=== PATIENT | male | born 1975 | race African-American/Black ===

== ENCOUNTER 2018-12-24 04:18 | Inpatient (IN) | payer OTHER ==
[~2018-12-24] VITALS: Ht 177.8 cm; Wt 65.3 kg
[2018-12-24] VITALS (10 sets, daily range): BP systolic 93–113; BP diastolic 58–79
[2018-12-24] MEDS ORDERED: MORPHINE SULFATE 4 MG/ML VIAL. IV ONE ×2 (05:00→07:30)
[2018-12-24] MEDS ORDERED: ONDANSETRON PF 4 MG/2 ML VIAL. IV ONE (05:00)
[2018-12-24 05:12] LABS: CALCIUM 9.4 mg/dL (8.5-10.1); CREATININE 1.1 mg/dL (0.7-1.3); GFR 72.7; POTASSIUM 3.5 mmol/L (3.5-5.1)
[2018-12-24 05:14] LABS: BASO # 0.1 x10^3/uL (0.0-0.2); BASO % 0 % (0-3); EOS % 0 % (0-3); HEMATOCRIT 38.8 % (39.0-53.0); HEMOGLOBIN 13.5 g/dL (13.0-17.5); LYMPH # 1.3 x10^3/uL (1.0-4.8); LYMPH % 9 % (24-48); MEAN CORPUSCULAR HEMOGLOBIN 33 pg (25-35); MEAN CORPUSCULAR HGB CONC 35 g/dL (31-37); MEAN CORPUSCULAR VOLUME 94 fL (79-100); MONO # 1.9 x10^3/uL (0.0-1.1); MONO % 13 % (0-9); NEUT % 77 % (31-73); PLATELET COUNT 320 x10^3/uL (140-400); RED BLOOD COUNT 4.12 x10^6/uL (4.30-5.70); RED CELL DISTRIBUTION WIDTH 14.1 % (11.5-14.5); WHITE BLOOD COUNT 14.2 x10^3/uL (4.0-11.0)
[2018-12-24 05:17] LABS: ALBUMIN 3.3 g/dL (3.4-5.0); ALBUMIN/GLOBULIN RATIO 0.6 (1.0-1.7); TOTAL BILIRUBIN 0.6 mg/dL (0.2-1.0); TOTAL PROTEIN 8.7 g/dL (6.4-8.2)
[2018-12-24] MEDS ORDERED: CONTRAST GIVEN. MC PRN (05:45)
[2018-12-24] MEDS ORDERED: IOHEXOL 300 MG/ML 100ML VIAL. IV ONE (05:45)
--- NOTE | 2018-12-24 06:22 | PHYS DOC ---
Past Medical History Past Medical History: No Pertinent History (KIMBERLEE LOPEZ MD) Alcohol Use: Occasionally Drug Use: None (KIMBERLEE LOPEZ MD) Adult General Chief Complaint Chief Complaint: ABDOMINAL PAIN HPI HPI Patient is a 43 year old male who is presenting with chief complaint of rectal pain. He has been there for 3 days feels gassy in the lower abdomen has never had this before no trauma no fever just about a pad every time he tries to have a bowel movement gets really bad. (KIMBERLEE LOPEZ MD) Review of Systems Review of Systems Constitutional: Denies fever or chills [] Eyes: Denies change in visual acuity, redness, or eye pain [] HENT: Denies nasal congestion or sore throat [] Respiratory: Denies cough or shortness of breath [] All other systems were reviewed and found to be within normal limits, except as documented in this note. (KIMBERLEE LOPEZ MD) Current Medications Current Medications Current Medications Medications (Trade) Dose Ordered Sig/Shereen Start Time Stop Time Status Last Admin Dose Admin Info (CONTRAST GIVEN -- Rx MONITORING) 1 each PRN DAILY PRN 12/24/18 05:45 12/26/18 05:44 Iohexol (Omnipaque 300 Mg/ml) 75 ml 1X ONCE 12/24/18 05:45 12/24/18 05:46 DC 12/24/18 05:45 75 ML Morphine Sulfate (Morphine Sulfate) 4 mg PRN Q2HR PRN 12/24/18 07:30 12/24/18 10:00 DC Ondansetron HCl (Zofran) 4 mg 1X ONCE 12/24/18 05:00 12/24/18 05:01 DC 12/24/18 04:54 4 MG Sodium Chloride 1,000 ml @ 150 mls/hr Q6H40M 12/24/18 07:22 12/24/18 14:58 DC 12/24/18 08:46 150 MLS/HR (CARMEN LEOS MD) Allergies Allergies Allergies Coded Allergies Type Severity Reaction Last Updated Verified No Known Drug Allergies 12/24/18 No (CARMEN LEOS MD) Physical Exam Physical Exam Constitutional: Well developed, well nourished, no acute distress, non-toxic appearance. [] HENT: Normocephalic, atraumatic, bilateral external ears normal, oropharynx moist, no oral exudates, nose normal. [] Eyes: PERRLA, EOMI, conjunctiva normal, no discharge. [] Neck: Normal range of motion, no tenderness, supple, no stridor. [] Cardiovascular:Heart rate regular rhythm, no murmur [] Lungs & Thorax: Bilateral breath sounds clear to auscultation [] Abdomen: Bowel sounds normal, soft, no tenderness, no masses, no pulsatile masses. [] Rectal exam there is some fullness and some swelling at approximately 10 to 11:00 it could be a tender external hemorrhoid Skin: Warm, dry, no erythema, no rash. [] Back: No tenderness, no CVA tenderness. [] Extremities: No tenderness, no cyanosis, no clubbing, ROM intact, no edema. [] Neurologic: Alert and oriented X 3, normal motor function, normal sensory function, no focal deficits noted. [] Psychologic: Affect normal, judgement normal, mood normal. [] (KIMBERLEE LOPEZ MD) Current Patient Data Vital Signs Vital Signs Date Time Temp Pulse Resp B/P (MAP) Pulse Ox O2 Delivery O2 Flow Rate FiO2 12/24/18 06:26 16 98 12/24/18 06:23 90 103/58 (73) Room Air 12/24/18 04:33 99.5 99.5 (CARMEN LEOS MD) Lab Values Laboratory Tests Test 12/24/18 04:45 White Blood Count 14.2 x10^3/uL (4.0-11.0) H Red Blood Count 4.12 x10^6/uL (4.30-5.70) L Hemoglobin 13.5 g/dL (13.0-17.5) Hematocrit 38.8 % (39.0-53.0) L Mean Corpuscular Volume 94 fL (79-100) Mean Corpuscular Hemoglobin 33 pg (25-35) Mean Corpuscular Hemoglobin Concent 35 g/dL (31-37) Red Cell Distribution Width 14.1 % (11.5-14.5) Platelet Count 320 x10^3/uL (140-400) Neutrophils (%) (Auto) 77 % (31-73) H Lymphocytes (%) (Auto) 9 % (24-48) L Monocytes (%) (Auto) 13 % (0-9) H Eosinophils (%) (Auto) 0 % (0-3) Basophils (%) (Auto) 0 % (0-3) Neutrophils # (Auto) 11.0 x10^3/uL (1.8-7.7) H Lymphocytes # (Auto) 1.3 x10^3/uL (1.0-4.8) Monocytes # (Auto) 1.9 x10^3/uL (0.0-1.1) H Eosinophils # (Auto) 0.0 x10^3/uL (0.0-0.7) Basophils # (Auto) 0.1 x10^3/uL (0.0-0.2) Segmented Neutrophils % 72 % (35-66) H Band Neutrophils % 6 % (0-9) Lymphocytes % 8 % (24-48) L Monocytes % 14 % (0-10) H Platelet Estimate Adequate (ADEQUATE) Sodium Level 136 mmol/L (136-145) Potassium Level 3.5 mmol/L (3.5-5.1) Chloride Level 97 mmol/L (98-107) L Carbon Dioxide Level 30 mmol/L (21-32) Anion Gap 9 (6-14) Blood Urea Nitrogen 6 mg/dL (8-26) L Creatinine 1.1 mg/dL (0.7-1.3) Estimated GFR (Cockcroft-Gault) 72.7 BUN/Creatinine Ratio 5 (6-20) L Glucose Level 110 mg/dL (70-99) H Calcium Level 9.4 mg/dL (8.5-10.1) Total Bilirubin 0.6 mg/dL (0.2-1.0) Aspartate Amino Transferase (AST) 60 U/L (15-37) H Alanine Aminotransferase (ALT) 48 U/L (16-63) Alkaline Phosphatase 69 U/L (46-116) Total Protein 8.7 g/dL (6.4-8.2) H Albumin 3.3 g/dL (3.4-5.0) L Albumin/Globulin Ratio 0.6 (1.0-1.7) L Laboratory Tests 12/24/18 04:45 Laboratory Tests 12/24/18 04:45 (CARMEN LEOS MD) EKG EKG [] (KIMBERLEE LOPEZ MD) Radiology/Procedures Radiology/Procedures [] (KIMBERLEE LOPEZ MD) Radiology/Procedures [facility] [address] [place] [address] IMAGING REPORT Signed PATIENT: ALAN CASANOVA ACCOUNT: [id number] : 1975 LOCATION: ER AGE: 43 SEX: M EXAM STATUS: PRE ER ORD. PHYSICIAN: KIMBERLEE LOPEZ MD REASON: EVAL FOR PERIRECTAL ABSCESS PROCEDURE: CT ABD PELV W/ IV CONTRST ONLY Study: CT abdomen/pelvis with intravenous contrast Indication: Evaluate for perirectal abscess. Comparison: None. Technique: Helical CT imaging performed of the abdomen and pelvis after the intravenous administration of 75 cc Omnipaque 300 contrast. Sagittal and coronal reformats were obtained. One or more of the following individualized dose reduction techniques were utilized for this examination: 1. Automated exposure control 2. Adjustment of the mA and/or kV according to patient size 3. Use of iterative reconstruction technique. Findings: Prominent perirectal abscess with a horseshoe configuration around the left, right and posterior aspects, image 79 series 2. Collectively, the abscess measures up to 5.7 cm transverse by 5.1 cm AP by 5.4 cm craniocaudal. No air within the abscess. Relatively mild surrounding inflammatory changes with trace lower pelvic fat stranding/fluid. No fluid collection seen elsewhere. The visualized lungs are unremarkable. Trace fatty infiltration along the falciform ligament. The gallbladder, pancreas, spleen and adrenal glands are unremarkable. Symmetric renal enhancement. No hydroureteronephrosis. Impression: Large perirectal abscess forming a horseshoe configuration around the left, right and posterior margins of the rectum collectively measuring up to 5.7 cm transverse by 5.1 cm AP by 5.4 cm craniocaudal. Expected surrounding inflammatory changes. No drainable fluid collection seen elsewhere. Electronically signed by: ALEXYS OBANDO MD (12/24/2018 6:37 AM) [id number] DICTATED and SIGNED BY: ALEXYS OBANDO MD DATE: 12/24/18 0637 (CARMEN LEOS MD) Course & Med Decision Making Course & Med Decision Making Pertinent Labs and Imaging studies reviewed. (See chart for details) []Rectal pain white count of 14 could be diverticulitis could be a perirectal abscess CT scan pending s/o vero (KIMBERLEE LOPEZ MD) Course & Med Decision Making Patient care transferred to tx at 0600. CT of abdomen and pelvis showed large horse shoe like perirectal abscess.Patient requiring admission for further evaluation and treatment. Discussed with Dr. Harris who is in agreement with admission. Discussed findings and plan with patient and family, who acknowledge understanding and agreement. On-call surgeon Dr. Solorzano was consulted at 0720 and did not recommend antibiotic. (CARMEN LEOS MD) Dragon Disclaimer Dragon Disclaimer This electronic medical record was generated, in whole or in part, using a voice recognition dictation system. (KIMBERLEE LOPEZ MD) Departure Departure Impression: Primary Impression: Perirectal abscess Disposition: ADMITTED INPATIENT Admitting Physician: KEN (CARMEN LEOS MD) Condition: IMPROVED Referrals: NON,STAFF (PCP) KIMBERLEE LOPEZ MD Dec 24, 2018 06:22 CARMEN LEOS MD Dec 24, 2018 07:08
--- NOTE | 2018-12-24 06:40 | RAD ---
Study: CT abdomen/pelvis with intravenous contrast Indication: Evaluate for perirectal abscess. Comparison: None. Technique: Helical CT imaging performed of the abdomen and pelvis after the intravenous administration of 75 cc Omnipaque 300 contrast. Sagittal and coronal reformats were obtained. One or more of the following individualized dose reduction techniques were utilized for this examination: 1. Automated exposure control 2. Adjustment of the mA and/or kV according to patient size 3. Use of iterative reconstruction technique. Findings: Prominent perirectal abscess with a horseshoe configuration around the left, right and posterior aspects, image 79 series 2. Collectively, the abscess measures up to 5.7 cm transverse by 5.1 cm AP by 5.4 cm craniocaudal. No air within the abscess. Relatively mild surrounding inflammatory changes with trace lower pelvic fat stranding/fluid. No fluid collection seen elsewhere. The visualized lungs are unremarkable. Trace fatty infiltration along the falciform ligament. The gallbladder, pancreas, spleen and adrenal glands are unremarkable. Symmetric renal enhancement. No hydroureteronephrosis. Impression: Large perirectal abscess forming a horseshoe configuration around the left, right and posterior margins of the rectum collectively measuring up to 5.7 cm transverse by 5.1 cm AP by 5.4 cm craniocaudal. Expected surrounding inflammatory changes. No drainable fluid collection seen elsewhere. Electronically signed by: ALEXYS OBANDO MD (12/24/2018 6:37 AM) [id number]
[2018-12-24] MEDS ORDERED: MORPHINE SULFATE 4 MG/ML VIAL. IV PRN (07:30)
[2018-12-24] MEDS ORDERED: IV NORMAL SALINE 1000ML BAG 1,000 ML IV ONE (07:30)
[2018-12-24 07:44] LABS: % BANDS 6 % (0-9); % LYMPHS 8 % (24-48); % MONOS 14 % (0-10); % SEGS 72 % (35-66); PLT ESTIMATE ADEQUATE (ADEQUATE)
--- NOTE | 2018-12-24 08:10 | PDOC1 ---
History and Physical Date of Admission Date of Admission DATE: 12/24/18 TIME: 08:06 Identification/Chief Complaint Chief Complaint Rectal pain Source Source: Patient History of Present Illness History of Present Illness Mr Narayan is a 43 year old male who is presenting with chief complaint of rectal pain. He has been there for 3 days feels gassy in the lower abdomen has never had this before no trauma no fever just about a pad every time he tries to have a bowel movement gets really bad. WBC 14.2, HR 99. AST elevated. Found with large perirectal abscess on CT, admitted for further pain control and treatment. 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 Past Medical History Cardiovascular: No pertinent hx Pulmonary: No pertinent hx GI: No pertinent hx Heme/Onc: No pertinent hx Hepatobiliary: No pertinent hx Psych: No pertinent hx Rheumatologic: No pertinent hx Infectious disease: No pertinent hx ENT: No pertinent hx Renal/: No pertinent hx Endocrine: No pertinent hx Dermatology: No pertinent hx Past Surgical History Past Surgical History: No pertinent history Family History Family History Reviewed Family History: Family History Unknown Social History Smoke: No ALCOHOL: rare Drugs: None Current Problem List Problem List Problems Medical Problems: (1) Perirectal abscess Status: Acute Current Medications Current Medications Current Medications Morphine Sulfate (Morphine Sulfate) 4 mg 1X ONCE IV Last administered on 12/24/18at 04:54; Start 12/24/18 at 05:00; Stop 12/24/18 at 05:01; Status DC Ondansetron HCl (Zofran) 4 mg 1X ONCE IV Last administered on 12/24/18at 04:54; Start 12/24/18 at 05:00; Stop 12/24/18 at 05:01; Status DC Iohexol (Omnipaque 300 Mg/ml) 75 ml 1X ONCE IV Last administered on 12/24/18at 05:45; Start 12/24/18 at 05:45; Stop 12/24/18 at 05:46; Status DC Info (CONTRAST GIVEN -- Rx MONITORING) 1 each PRN DAILY PRN MC SEE COMMENTS; Start 12/24/18 at 05:45; Stop 12/26/18 at 05:44 Morphine Sulfate (Morphine Sulfate) 4 mg 1X ONCE IV Last administered on 12/24/18at 07:25; Start 12/24/18 at 07:30; Stop 12/24/18 at 07:31; Status DC Sodium Chloride 1,000 ml @ 1,000 mls/hr 1X ONCE IV Last administered on 12/24/18at 07:24; Start 12/24/18 at 07:30; Stop 12/24/18 at 08:29 Morphine Sulfate (Morphine Sulfate) 4 mg PRN Q2HR PRN IV PAIN; Start 12/24/18 at 07:30; Stop 12/24/18 at 10:00 Sodium Chloride 1,000 ml @ 150 mls/hr Q6H40M IV ; Start 12/24/18 at 07:22; Stop 12/25/18 at 07:21 Allergies Allergies: Coded Allergies: No Known Drug Allergies (Unverified , 12/24/18) ROS General: No: Chills, Night Sweats, Fatigue, Malaise, Appetite, Other PSYCHOLOGICAL ROS: No: Anxiety, Behavioral Disorder, Concentration difficultie, Decreased libido, Depression, Disorientation, Hallucinations, Hostility, Irritablity, Memory difficulties, Mood Swings, Obsessive thoughts, Physical abuse, Sexual abuse, Sleep disturbances, Suicidal ideation, Other Eyes: No Blurry vision, No Decreased vision, No Double vision, No Dry eyes, No Excessive tearing, No Eye Pain, No Itchy Eyes, No Loss of vision, No Photophobia, No Scotomata, No Uses contacts, No Uses glasses, No Other HEENT: No: Heacaches, Visual Changes, Hearing change, Nasal congestion, Nasal discharge, Oral lesions, Sinus pain, Sore Throat, Epistaxis, Sneezing, Snoring, Tinnitus, Vertigo, Vocal changes, Other ALLERGY AND IMMUNOLOGY: No: Hives, Insect Bite Sensitivity, Itchy/Watery Eyes, Nasal Congestion, Post Nasal Drip, Seasonal Allergies, Other Hematological and Lymphatic: No: Bleeding Problems, Blood Clots, Blood Transfusions, Brusing, Night Sweats, Pallor, Swollen Lymph Nodes, Other ENDOCRINE: No: Breast Changes, Galactorrhea, Hair Pattern Changes, Hot Flashes, Malaise/lethargy, Mood Swings, Palpitations, Polydipsia/polyuria, Skin Changes, Temperature Intolerance, Unexpected Weight Changes, Other Breast: No New/Changing Breast Lumps, No Nipple changes, No Nipple discharge, No Other Respiratory: No: Cough, Hemoptysis, Orthopnea, Pleuritic Pain, Shortness of breath, SOB with excertion, Sputum Changes, Stridor, Tachypnea, Wheezing, Other Cardiovascular: No Chest Pain, No Palpitations, No Orthopnea, No Paroxysmal Noc. Dyspnea, No Edema, No Lt Headedness, No Other Gastrointestinal: Yes Nausea, Yes Abdominal Pain; No Vomiting, No Diarrhea, No Constipation, No Melena, No Hematochezia, No Other Genitourinary: No Dysuria, No Frequency, No Incontinence, No Hematuria, No Retention, No Discharge, No Urgency, No Pain, No Flank Pain, No Other, No , No , No , No , No , No , No Musculoskeletal: No Gait Disturbance, No Joint Pain, No Joint Stiffness, No Joint Swelling, No Muscle Pain, No Muscular Weakness, No Pain In:, No Swelling In:, No Other Neurological: No Behavorial Changes, No Bowel/Bladder ControlChng, No Confusion, No Dizziness, No Gait Disturbance, No Headaches, No Impaired Coord/balance, No Memory Loss, No Numbness/Tingling, No Seizures, No Speech Problems, No Tremors, No Visual Changes, No Weakness, No Other Skin: No Dry Skin, No Eczema, No Hair Changes, No Lumps, No Mole Changes, No Mottling, No Nail Changes, No Pruritus, No Rash, No Skin Lesion Changes, No Other, No Acne Physical Exam General: Alert, Oriented X3, Cooperative, No acute distress HEENT: Atraumatic, PERRLA, EOMI, Mucous membr. moist/pink Lungs: Clear to auscultation, Normal air movement Heart: S1S2, RRR, no gallops, no murmurs Abdomen: Normal bowel sounds, Soft, No tenderness, No hepatosplenomegaly, No masses Male Genitals Exam: normal genitalia Rectal Exam: other (Pain) Extremities: No clubbing, No cyanosis, No edema, Normal pulses, No tenderness/swelling Skin: No rashes, No breakdown, No significant lesion Neuro: Normal gait, Normal speech, Strength at 5/5 X4 ext, Normal tone, Sensation intact, Cranial nerves 3-12 NL, Reflexes 2+ Psych/Mental Status: Mental status NL, Mood NL Vitals Vitals Vital Signs Date Time Temp Pulse Resp B/P (MAP) Pulse Ox O2 Delivery O2 Flow Rate FiO2 12/24/18 06:26 16 98 12/24/18 06:23 90 103/58 (73) Room Air 12/24/18 04:33 99.5 99.5 Labs Labs Laboratory Tests Test 12/24/18 04:45 White Blood Count 14.2 x10^3/uL (4.0-11.0) Red Blood Count 4.12 x10^6/uL (4.30-5.70) Hemoglobin 13.5 g/dL (13.0-17.5) Hematocrit 38.8 % (39.0-53.0) Mean Corpuscular Volume 94 fL (79-100) Mean Corpuscular Hemoglobin 33 pg (25-35) Mean Corpuscular Hemoglobin Concent 35 g/dL (31-37) Red Cell Distribution Width 14.1 % (11.5-14.5) Platelet Count 320 x10^3/uL (140-400) Neutrophils (%) (Auto) 77 % (31-73) Lymphocytes (%) (Auto) 9 % (24-48) Monocytes (%) (Auto) 13 % (0-9) Eosinophils (%) (Auto) 0 % (0-3) Basophils (%) (Auto) 0 % (0-3) Neutrophils # (Auto) 11.0 x10^3/uL (1.8-7.7) Lymphocytes # (Auto) 1.3 x10^3/uL (1.0-4.8) Monocytes # (Auto) 1.9 x10^3/uL (0.0-1.1) Eosinophils # (Auto) 0.0 x10^3/uL (0.0-0.7) Basophils # (Auto) 0.1 x10^3/uL (0.0-0.2) Segmented Neutrophils % 72 % (35-66) Band Neutrophils % 6 % (0-9) Lymphocytes % 8 % (24-48) Monocytes % 14 % (0-10) Platelet Estimate Adequate (ADEQUATE) Sodium Level 136 mmol/L (136-145) Potassium Level 3.5 mmol/L (3.5-5.1) Chloride Level 97 mmol/L (98-107) Carbon Dioxide Level 30 mmol/L (21-32) Anion Gap 9 (6-14) Blood Urea Nitrogen 6 mg/dL (8-26) Creatinine 1.1 mg/dL (0.7-1.3) Estimated GFR (Cockcroft-Gault) 72.7 BUN/Creatinine Ratio 5 (6-20) Glucose Level 110 mg/dL (70-99) Calcium Level 9.4 mg/dL (8.5-10.1) Total Bilirubin 0.6 mg/dL (0.2-1.0) Aspartate Amino Transf (AST/SGOT) 60 U/L (15-37) Alanine Aminotransferase (ALT/SGPT) 48 U/L (16-63) Alkaline Phosphatase 69 U/L (46-116) Total Protein 8.7 g/dL (6.4-8.2) Albumin 3.3 g/dL (3.4-5.0) Albumin/Globulin Ratio 0.6 (1.0-1.7) Laboratory Tests Test 12/24/18 04:45 White Blood Count 14.2 x10^3/uL (4.0-11.0) Red Blood Count 4.12 x10^6/uL (4.30-5.70) Hemoglobin 13.5 g/dL (13.0-17.5) Hematocrit 38.8 % (39.0-53.0) Mean Corpuscular Volume 94 fL (79-100) Mean Corpuscular Hemoglobin 33 pg (25-35) Mean Corpuscular Hemoglobin Concent 35 g/dL (31-37) Red Cell Distribution Width 14.1 % (11.5-14.5) Platelet Count 320 x10^3/uL (140-400) Neutrophils (%) (Auto) 77 % (31-73) Lymphocytes (%) (Auto) 9 % (24-48) Monocytes (%) (Auto) 13 % (0-9) Eosinophils (%) (Auto) 0 % (0-3) Basophils (%) (Auto) 0 % (0-3) Neutrophils # (Auto) 11.0 x10^3/uL (1.8-7.7) Lymphocytes # (Auto) 1.3 x10^3/uL (1.0-4.8) Monocytes # (Auto) 1.9 x10^3/uL (0.0-1.1) Eosinophils # (Auto) 0.0 x10^3/uL (0.0-0.7) Basophils # (Auto) 0.1 x10^3/uL (0.0-0.2) Segmented Neutrophils % 72 % (35-66) Band Neutrophils % 6 % (0-9) Lymphocytes % 8 % (24-48) Monocytes % 14 % (0-10) Platelet Estimate Adequate (ADEQUATE) Sodium Level 136 mmol/L (136-145) Potassium Level 3.5 mmol/L (3.5-5.1) Chloride Level 97 mmol/L (98-107) Carbon Dioxide Level 30 mmol/L (21-32) Anion Gap 9 (6-14) Blood Urea Nitrogen 6 mg/dL (8-26) Creatinine 1.1 mg/dL (0.7-1.3) Estimated GFR (Cockcroft-Gault) 72.7 BUN/Creatinine Ratio 5 (6-20) Glucose Level 110 mg/dL (70-99) Calcium Level 9.4 mg/dL (8.5-10.1) Total Bilirubin 0.6 mg/dL (0.2-1.0) Aspartate Amino Transf (AST/SGOT) 60 U/L (15-37) Alanine Aminotransferase (ALT/SGPT) 48 U/L (16-63) Alkaline Phosphatase 69 U/L (46-116) Total Protein 8.7 g/dL (6.4-8.2) Albumin 3.3 g/dL (3.4-5.0) Albumin/Globulin Ratio 0.6 (1.0-1.7) Images Images CT abdomen/pelvis with intravenous contrast - Prominent perirectal abscess with a horseshoe configuration around the left, right and posterior aspects, image 79 series 2. Collectively, the abscess measures up to 5.7 cm transverse by 5.1 cm AP by 5.4 cm craniocaudal. No air within the abscess. Relatively mild surrounding inflammatory changes with trace lower pelvic fat stranding/fluid. No fluid collection seen elsewhere. The visualized lungs are unremarkable. Trace fatty infiltration along the falciform ligament. The gallbladder, pancreas, spleen and adrenal glands are unremarkable. Symmetric renal enhancement. No hydroureteronephrosis. Large perirectal abscess forming a horseshoe configuration around the left, right and posterior margins of the rectum collectively measuring up to 5.7 cm transverse by 5.1 cm AP by 5.4 cm craniocaudal. Expected surrounding inflammatory changes. No drainable fluid collection seen elsewhere. VTE Prophylaxis Ordered VTE Prophylaxis Devices: No VTE Pharmacological Prophylaxi: Yes Assessment/Plan Assessment/Plan A/P: Perirectal abscess - started on empiric antibiotics, IVF. General surgery consulted for surgical correction Sepsis - Secondary to abscess, given IVF and empiric antibiotics Transaminitis - uncertain etiology, will trend. FEN - NPO PPX - lovenox post op FULL CODE Dispo - inpatient for surgery, pain control SHERRI MAN MD Dec 24, 2018 08:10
[2018-12-24 08:40] LABS: BILIRUBIN,URINE NEGATIVE (NEG); CLARITY,URINE CLEAR; COLOR,URINE YELLOW; NITRITE,URINE NEGATIVE (NEG); PROTEIN,URINE NEGATIVE (NEG-TRACE)
[2018-12-24] MEDS ORDERED: fentaNYL PF VIAL 100 MCG/2 ML VIAL IVP ONE (08:45)
[2018-12-24] MEDS: IV NORMAL SALINE 1000ML BAG 1,000 ML IV SCH ×2 (08:46→14:02)
[2018-12-24 08:59] LABS: RBC,URINE 0 /HPF (0-2)
[2018-12-24 09:00] LABS: BACTERIA,URINE FEW /HPF (0-FEW); SQUAMOUS EPITHELIAL CELL,UR OCC /LPF
--- NOTE | 2018-12-24 09:30 | NUR ---
Pt arrived via gurney from ED. VSS, C/O pain 12/28 d/t perirectal abscess. Skin is intact. Completed admission assessment. IVF infusing. Pt taken to surgery wound pictures were not taken before he left. Oriented to unit and routines. Call light within reach. Will return to monitor.
[2018-12-24 09:50] LABS: AMPHETAMINE/METHAMPHETAMINE NEG (NEG); BARBITURATES NEG (NEG); BENZODIAZEPINES NEG (NEG); CANNABINOIDS NEG (NEG); COCAINE NEG (NEG); METHADONE NEG (NEG); OPIATES POS (NEG); PHENCYCLIDINE NEG (NEG)
[2018-12-24] MEDS ORDERED: FLU VAX QS 2019-20 (36MOS+)/PF 0.5 ML SYRINGE. VAX IM ONE (10:00)
[2018-12-24] MEDS ORDERED: IV RINGERS,LACTATED 1000ML 1,000 ML IV SCH (10:21)
[2018-12-24] MEDS ORDERED: MORPHINE SULFATE 2 MG/ML VIAL. IV PRN (10:30)
[2018-12-24] MEDS ORDERED: LIDOCAINE 1% PF 2 ML VIAL. ID PRN (10:30)
[2018-12-24] MEDS ORDERED: fentaNYL PF VIAL 100 MCG/2 ML VIAL IV PRN ×2 (10:30)
[2018-12-24] MEDS ORDERED: HYDROmorphone 2 MG/ML VIAL IV PRN ×2 (10:30→12:00)
[2018-12-24] MEDS ORDERED: PROCHLORPERAZINE 10 MG/2 ML VIAL. IV PRN (10:30)
[2018-12-24] MEDS ORDERED: ONDANSETRON PF 4 MG/2 ML VIAL. IV PRN ×2 (10:30→12:00)
[2018-12-24] MEDS ORDERED: fentaNYL PF VIAL 100 MCG/2 ML VIAL ONE (10:34)
[2018-12-24] MEDS ORDERED: DEXAMETHASONE SOD PHOS 4 MG/ML VIAL ONE (10:34)
[2018-12-24] MEDS ORDERED: ONDANSETRON PF 4 MG/2 ML VIAL. ONE (10:34)
[2018-12-24] MEDS ORDERED: PROPOFOL 20 ML IV ONE (10:34)
[2018-12-24] MEDS ORDERED: LIDOCAINE 2% PF 5 ML VIAL. ONE (10:34)
[2018-12-24] MEDS ORDERED: MIDAZOLAM HCL/PF 2 MG/2 ML VIAL. ONE (10:35)
[2018-12-24] MEDS ORDERED: BUPIVACAINE-EPI 0.5%-1:200000 MPF 30 ML VIAL. INJ ONE (11:00)
--- NOTE | 2018-12-24 11:03 | PDOC2 ---
CONSULT Date of Consult Date of Consult DATE: 12/24/18 TIME: 10:57 Reason for Consult Reason for Consult: perirectal abscess Referring Physician Referring Physician: AHSAN Identification/Chief Complaint Chief Complaint rectal pain Source Source: Chart review, Patient History of Present Illness Reason for Visit: Mr Saleem mendoza a 43 yo gentleman with week hx of rectal pain, worse with bowel movements. No similar previous episodes. Got noticeably worse last noc. CT early this AM shows horseshoe abscess Past Medical History Cardiovascular: No pertinent hx Pulmonary: No pertinent hx GI: No pertinent hx Renal/: No pertinent hx Past Surgical History Past Surgical History: No pertinent history Family History Family History: No Significant Current Problem List Problem List Problems Medical Problems: (1) Perirectal abscess Status: Acute Current Medications Current Medications Current Medications Morphine Sulfate (Morphine Sulfate) 4 mg 1X ONCE IV Last administered on 12/24/18at 04:54; Start 12/24/18 at 05:00; Stop 12/24/18 at 05:01; Status DC Ondansetron HCl (Zofran) 4 mg 1X ONCE IV Last administered on 12/24/18at 04:54; Start 12/24/18 at 05:00; Stop 12/24/18 at 05:01; Status DC Iohexol (Omnipaque 300 Mg/ml) 75 ml 1X ONCE IV Last administered on 12/24/18at 05:45; Start 12/24/18 at 05:45; Stop 12/24/18 at 05:46; Status DC Info (CONTRAST GIVEN -- Rx MONITORING) 1 each PRN DAILY PRN MC SEE COMMENTS; Start 12/24/18 at 05:45; Stop 12/26/18 at 05:44 Morphine Sulfate (Morphine Sulfate) 4 mg 1X ONCE IV Last administered on 12/24/18at 07:25; Start 12/24/18 at 07:30; Stop 12/24/18 at 07:31; Status DC Sodium Chloride 1,000 ml @ 1,000 mls/hr 1X ONCE IV Last administered on 12/24/18at 07:24; Start 12/24/18 at 07:30; Stop 12/24/18 at 08:29; Status DC Morphine Sulfate (Morphine Sulfate) 4 mg PRN Q2HR PRN IV PAIN; Start 12/24/18 at 07:30; Stop 12/24/18 at 10:00; Status DC Sodium Chloride 1,000 ml @ 150 mls/hr Q6H40M IV Last administered on 12/24/18at 08:46; Start 12/24/18 at 07:22; Stop 12/25/18 at 07:21 Fentanyl Citrate (Fentanyl 2ml Vial) 50 mcg 1X ONCE IVP Last administered on 12/24/18at 08:46; Start 12/24/18 at 08:45; Stop 12/24/18 at 08:46; Status DC Influenza Virus Vaccine Quadrival (Afluria Quad 2019-20 (3yr Up) Syringe) 0.5 ml ONCE ONCE VAX IM ; Start 12/24/18 at 10:00; Stop 12/24/18 at 10:01; Status DC Metronidazole 100 ml @ 100 mls/hr 1X ONCE IV Last administered on 12/24/18at 10:44; Start 12/24/18 at 10:15; Stop 12/24/18 at 11:14 Ondansetron HCl (Zofran) 4 mg PRN Q6HRS PRN IV NAUSEA/VOMITING; Start 12/24/18 at 10:30; Stop 12/24/18 at 18:00 Fentanyl Citrate (Fentanyl 2ml Vial) 25 mcg PRN Q5MIN PRN IV MILD PAIN 1-3; Start 12/24/18 at 10:30; Stop 12/24/18 at 18:00 Fentanyl Citrate (Fentanyl 2ml Vial) 50 mcg PRN Q5MIN PRN IV MODERATE TO SEVERE PAIN; Start 12/24/18 at 10:30; Stop 12/24/18 at 20:00 Morphine Sulfate (Morphine Sulfate) 1 mg PRN Q10MIN PRN IV SEVERE PAIN 7-10; Start 12/24/18 at 10:30; Stop 12/24/18 at 18:00 Ringer's Solution 1,000 ml @ 30 mls/hr Q24H IV ; Start 12/24/18 at 10:21; Stop 12/24/18 at 22:20 Lidocaine HCl (Xylocaine-Mpf 1% 2ml Vial) 2 ml PRN 1X PRN ID PRIOR TO IV START; Start 12/24/18 at 10:30; Stop 12/24/18 at 18:00 Hydromorphone HCl (Dilaudid) 0.5 mg PRN Q10MIN PRN IV SEV PAIN, Second choice; Start 12/24/18 at 10:30; Stop 12/24/18 at 18:00 Prochlorperazine Edisylate (Compazine) 5 mg PACU PRN PRN IV NAUSEA, MRX1; Start 12/24/18 at 10:30; Stop 12/24/18 at 18:00 Propofol 20 ml @ As Directed STK-MED ONCE IV ; Start 12/24/18 at 10:34; Stop 12/24/18 at 10:34; Status DC Dexamethasone Sodium Phosphate (Decadron) 4 mg STK-MED ONCE .ROUTE ; Start 12/24/18 at 10:34; Stop 12/24/18 at 10:34; Status DC Lidocaine HCl (Lidocaine Pf 2% Vial) 5 ml STK-MED ONCE .ROUTE ; Start 12/24/18 at 10:34; Stop 12/24/18 at 10:34; Status DC Ondansetron HCl (Zofran) 4 mg STK-MED ONCE .ROUTE ; Start 12/24/18 at 10:34; Stop 12/24/18 at 10:34; Status DC Fentanyl Citrate (Fentanyl 2ml Vial) 100 mcg STK-MED ONCE .ROUTE ; Start 12/24/18 at 10:34; Stop 12/24/18 at 10:35; Status DC Midazolam HCl (Versed) 2 mg STK-MED ONCE .ROUTE ; Start 12/24/18 at 10:35; Stop 12/24/18 at 10:35; Status DC Bupivacaine HCl/ Epinephrine Bitart (Sensorcain-Epi 0.5%-1:175102 Mpf) 30 ml 1X ONCE INJ ; Start 12/24/18 at 11:00; Stop 12/24/18 at 11:01 Allergies Allergies: Coded Allergies: No Known Drug Allergies (Unverified , 12/24/18) ROS Gastrointestinal: Yes Other (pain with defication) Physical Exam General: Alert, Oriented X3, No acute distress HEENT: Atraumatic Lungs: Normal air movement Heart: Regular rate Abdomen: Soft, Other (erythema, induration in perirectal area) Vitals VITALS Vital Signs Date Time Temp Pulse Resp B/P (MAP) Pulse Ox O2 Delivery O2 Flow Rate FiO2 12/24/18 10:44 100.4 98 16 111/70 96 Room Air 100.4 Labs Labs Laboratory Tests Test 12/24/18 04:45 12/24/18 08:25 White Blood Count 14.2 x10^3/uL (4.0-11.0) Red Blood Count 4.12 x10^6/uL (4.30-5.70) Hemoglobin 13.5 g/dL (13.0-17.5) Hematocrit 38.8 % (39.0-53.0) Mean Corpuscular Volume 94 fL (79-100) Mean Corpuscular Hemoglobin 33 pg (25-35) Mean Corpuscular Hemoglobin Concent 35 g/dL (31-37) Red Cell Distribution Width 14.1 % (11.5-14.5) Platelet Count 320 x10^3/uL (140-400) Neutrophils (%) (Auto) 77 % (31-73) Lymphocytes (%) (Auto) 9 % (24-48) Monocytes (%) (Auto) 13 % (0-9) Eosinophils (%) (Auto) 0 % (0-3) Basophils (%) (Auto) 0 % (0-3) Neutrophils # (Auto) 11.0 x10^3/uL (1.8-7.7) Lymphocytes # (Auto) 1.3 x10^3/uL (1.0-4.8) Monocytes # (Auto) 1.9 x10^3/uL (0.0-1.1) Eosinophils # (Auto) 0.0 x10^3/uL (0.0-0.7) Basophils # (Auto) 0.1 x10^3/uL (0.0-0.2) Segmented Neutrophils % 72 % (35-66) Band Neutrophils % 6 % (0-9) Lymphocytes % 8 % (24-48) Monocytes % 14 % (0-10) Platelet Estimate Adequate (ADEQUATE) Sodium Level 136 mmol/L (136-145) Potassium Level 3.5 mmol/L (3.5-5.1) Chloride Level 97 mmol/L (98-107) Carbon Dioxide Level 30 mmol/L (21-32) Anion Gap 9 (6-14) Blood Urea Nitrogen 6 mg/dL (8-26) Creatinine 1.1 mg/dL (0.7-1.3) Estimated GFR (Cockcroft-Gault) 72.7 BUN/Creatinine Ratio 5 (6-20) Glucose Level 110 mg/dL (70-99) Calcium Level 9.4 mg/dL (8.5-10.1) Total Bilirubin 0.6 mg/dL (0.2-1.0) Aspartate Amino Transf (AST/SGOT) 60 U/L (15-37) Alanine Aminotransferase (ALT/SGPT) 48 U/L (16-63) Alkaline Phosphatase 69 U/L (46-116) Total Protein 8.7 g/dL (6.4-8.2) Albumin 3.3 g/dL (3.4-5.0) Albumin/Globulin Ratio 0.6 (1.0-1.7) Urine Collection Type Void Urine Color Yellow Urine Clarity Clear Urine pH 6.0 Urine Specific [place] >=1.030 Urine Protein Negative mg/dL (NEG-TRACE) Urine Glucose (UA) Negative mg/dL (NEG) Urine Ketones (Stick) Negative mg/dL (NEG) Urine Blood Negative (NEG) Urine Nitrite Negative (NEG) Urine Bilirubin Negative (NEG) Urine Urobilinogen Dipstick 1.0 mg/dL (0.2 mg/dL) Urine Leukocyte Esterase Negative (NEG) Urine RBC 0 /HPF (0-2) Urine WBC 1-4 /HPF (0-4) Urine Squamous Epithelial Cells Occ /LPF Urine Bacteria Few /HPF (0-FEW) Urine Mucus Mod /LPF Urine Opiates Screen Pos (NEG) Urine Methadone Screen Neg (NEG) Urine Barbiturates Neg (NEG) Urine Phencyclidine Screen Neg (NEG) Urine Amphetamine/Methamphetamine Neg (NEG) Urine Benzodiazepines Screen Neg (NEG) Urine Cocaine Screen Neg (NEG) Urine Cannabinoids Screen Neg (NEG) Urine Ethyl Alcohol Neg (NEG) Laboratory Tests Test 12/24/18 04:45 12/24/18 08:25 White Blood Count 14.2 x10^3/uL (4.0-11.0) Red Blood Count 4.12 x10^6/uL (4.30-5.70) Hemoglobin 13.5 g/dL (13.0-17.5) Hematocrit 38.8 % (39.0-53.0) Mean Corpuscular Volume 94 fL (79-100) Mean Corpuscular Hemoglobin 33 pg (25-35) Mean Corpuscular Hemoglobin Concent 35 g/dL (31-37) Red Cell Distribution Width 14.1 % (11.5-14.5) Platelet Count 320 x10^3/uL (140-400) Neutrophils (%) (Auto) 77 % (31-73) Lymphocytes (%) (Auto) 9 % (24-48) Monocytes (%) (Auto) 13 % (0-9) Eosinophils (%) (Auto) 0 % (0-3) Basophils (%) (Auto) 0 % (0-3) Neutrophils # (Auto) 11.0 x10^3/uL (1.8-7.7) Lymphocytes # (Auto) 1.3 x10^3/uL (1.0-4.8) Monocytes # (Auto) 1.9 x10^3/uL (0.0-1.1) Eosinophils # (Auto) 0.0 x10^3/uL (0.0-0.7) Basophils # (Auto) 0.1 x10^3/uL (0.0-0.2) Segmented Neutrophils % 72 % (35-66) Band Neutrophils % 6 % (0-9) Lymphocytes % 8 % (24-48) Monocytes % 14 % (0-10) Platelet Estimate Adequate (ADEQUATE) Sodium Level 136 mmol/L (136-145) Potassium Level 3.5 mmol/L (3.5-5.1) Chloride Level 97 mmol/L (98-107) Carbon Dioxide Level 30 mmol/L (21-32) Anion Gap 9 (6-14) Blood Urea Nitrogen 6 mg/dL (8-26) Creatinine 1.1 mg/dL (0.7-1.3) Estimated GFR (Cockcroft-Gault) 72.7 BUN/Creatinine Ratio 5 (6-20) Glucose Level 110 mg/dL (70-99) Calcium Level 9.4 mg/dL (8.5-10.1) Total Bilirubin 0.6 mg/dL (0.2-1.0) Aspartate Amino Transf (AST/SGOT) 60 U/L (15-37) Alanine Aminotransferase (ALT/SGPT) 48 U/L (16-63) Alkaline Phosphatase 69 U/L (46-116) Total Protein 8.7 g/dL (6.4-8.2) Albumin 3.3 g/dL (3.4-5.0) Albumin/Globulin Ratio 0.6 (1.0-1.7) Urine Collection Type Void Urine Color Yellow Urine Clarity Clear Urine pH 6.0 Urine Specific [place] >=1.030 Urine Protein Negative mg/dL (NEG-TRACE) Urine Glucose (UA) Negative mg/dL (NEG) Urine Ketones (Stick) Negative mg/dL (NEG) Urine Blood Negative (NEG) Urine Nitrite Negative (NEG) Urine Bilirubin Negative (NEG) Urine Urobilinogen Dipstick 1.0 mg/dL (0.2 mg/dL) Urine Leukocyte Esterase Negative (NEG) Urine RBC 0 /HPF (0-2) Urine WBC 1-4 /HPF (0-4) Urine Squamous Epithelial Cells Occ /LPF Urine Bacteria Few /HPF (0-FEW) Urine Mucus Mod /LPF Urine Opiates Screen Pos (NEG) Urine Methadone Screen Neg (NEG) Urine Barbiturates Neg (NEG) Urine Phencyclidine Screen Neg (NEG) Urine Amphetamine/Methamphetamine Neg (NEG) Urine Benzodiazepines Screen Neg (NEG) Urine Cocaine Screen Neg (NEG) Urine Cannabinoids Screen Neg (NEG) Urine Ethyl Alcohol Neg (NEG) Images Images CT done earlier today is reviewed Assessment/Plan Assessment/Plan horseshoe perirectal abscess to OR for I and D explained risks including but not limited to bleeding, continued infection, open wounds requiring wound care, possible need for more surgery, pain, poor sphincter control he will proceed Thanks for consult BUFFY DUENAS MD Dec 24, 2018 11:03
[2018-12-24] MEDS ORDERED: SURGICEL HEMOSTAT 4X8 EACH. ONE (11:28)
[2018-12-24] MEDS ORDERED: KETOROLAC 30 MG/ML VIAL. ONE (11:28)
[2018-12-24] MEDS ORDERED: SEVOFLURANE 31 TO 60 MINUTES. IH ONE (11:47)
[2018-12-24] MEDS ORDERED: IPRATRPIUM/ALBUTEROL 0.5/2.5MG 3 ML NEBU. ONE (11:51)
[2018-12-24] MEDS ORDERED: IV NORMAL SALINE 1000ML BAG 1,000 ML IV SCH (11:59)
[2018-12-24] MEDS ORDERED: IPRATRPIUM/ALBUTEROL 0.5/2.5MG 3 ML NEBU. NEB ONE (12:00)
[2018-12-24] MEDS ORDERED: oxyCODONE/APAP 5/325 1 TAB TABLET PO PRN (12:00)
[2018-12-24] MEDS ORDERED: 0.9 % SODIUM CHLORIDE 10 ML DISP.SYRIN. IV PRN (12:00)
[2018-12-24] MEDS ORDERED: NALOXONE 0.4 MG/ML VIAL. IV PRN (12:00)
--- NOTE | 2018-12-24 12:07 | PDOC ---
BRIEF OPERATIVE NOTE Date: Dec 24, 2018 Pre-Op Diagnosis belinda-rectal abscess Post-Op Diagnosis same Procedure Performed incision and drainage Surgeon Rashad Anesthesia Type: General Blood Loss 25cc IV Fluid 800cc Specimens Obtained cultures Findings horseshoe abscess Complications none Operative Note Wk # [id number] BUFFY DUENAS MD Dec 24, 2018 12:07
--- NOTE | 2018-12-24 12:12 | OP ---
DATE OF SURGERY: 12/24/2018 PREOPERATIVE DIAGNOSIS: Perirectal abscess. POSTOPERATIVE DIAGNOSIS: Perirectal abscess. PROCEDURE: Incision and drainage. SURGEON: Buffy Duenas MD ANESTHESIA: General LMA. ESTIMATED BLOOD LOSS: 25 mL. INTRAVENOUS FLUIDS: 800 mL. INDICATIONS: The patient is a 43-year-old with rectal pain and a CT showing a horseshoe abscess. He is brought for I and D. DESCRIPTION OF PROCEDURE: The patient brought to the operating suite, given a general LMA, placed in dorsal lithotomy position, and the perianal area was prepped and draped in usual sterile fashion. An area of pointing at 5 o'clock was opened and immediately extruded purulent drainage. Cultures were made. The wound was digitally explored and showed extension superiorly on the left to 2 o'clock and superior lateral on the right to 8 o'clock. After digitally breaking up loculations, the wound was irrigated. [place] drains were placed through the counterincisions at 2 o'clock and 8 o'clock into the initial incision at 5 o'clock and secured with silk stitches. Hemostasis was present. Sterile dressing applied. The patient taken out of lithotomy, awakened from his anesthetic, and taken to the recovery room in satisfactory condition. BUFFY DUENAS MD DR: MEGAN/juan josé JOB#: [id number] / [id number]
--- NOTE | 2018-12-24 12:30 | NUR ---
Pt return from surgery. Denies pain, VSS on 4L, IVF infusing. Dressing checked small amount of drainage. Water pitcher filled and meal tray offered. Call light within reach. Will continue to monitor.
[2018-12-24] MEDS: ENOXAPARIN 40 MG/0.4 ML SYRINGE. SQ SCH (13:00)
--- NOTE | 2018-12-24 14:39 | PDOC ---
Infectious Disease Note Vital Sign Vital Signs Vital Signs Date Time Temp Pulse Resp B/P (MAP) Pulse Ox O2 Delivery O2 Flow Rate FiO2 12/24/18 12:45 99.0 103 20 105/73 (84) 95 Room Air 99.0 12/24/18 12:28 4 Labs Lab Laboratory Tests Test 12/24/18 04:45 12/24/18 08:25 White Blood Count 14.2 x10^3/uL (4.0-11.0) Red Blood Count 4.12 x10^6/uL (4.30-5.70) Hemoglobin 13.5 g/dL (13.0-17.5) Hematocrit 38.8 % (39.0-53.0) Mean Corpuscular Volume 94 fL (79-100) Mean Corpuscular Hemoglobin 33 pg (25-35) Mean Corpuscular Hemoglobin Concent 35 g/dL (31-37) Red Cell Distribution Width 14.1 % (11.5-14.5) Platelet Count 320 x10^3/uL (140-400) Neutrophils (%) (Auto) 77 % (31-73) Lymphocytes (%) (Auto) 9 % (24-48) Monocytes (%) (Auto) 13 % (0-9) Eosinophils (%) (Auto) 0 % (0-3) Basophils (%) (Auto) 0 % (0-3) Neutrophils # (Auto) 11.0 x10^3/uL (1.8-7.7) Lymphocytes # (Auto) 1.3 x10^3/uL (1.0-4.8) Monocytes # (Auto) 1.9 x10^3/uL (0.0-1.1) Eosinophils # (Auto) 0.0 x10^3/uL (0.0-0.7) Basophils # (Auto) 0.1 x10^3/uL (0.0-0.2) Segmented Neutrophils % 72 % (35-66) Band Neutrophils % 6 % (0-9) Lymphocytes % 8 % (24-48) Monocytes % 14 % (0-10) Platelet Estimate Adequate (ADEQUATE) Sodium Level 136 mmol/L (136-145) Potassium Level 3.5 mmol/L (3.5-5.1) Chloride Level 97 mmol/L (98-107) Carbon Dioxide Level 30 mmol/L (21-32) Anion Gap 9 (6-14) Blood Urea Nitrogen 6 mg/dL (8-26) Creatinine 1.1 mg/dL (0.7-1.3) Estimated GFR (Cockcroft-Gault) 72.7 BUN/Creatinine Ratio 5 (6-20) Glucose Level 110 mg/dL (70-99) Calcium Level 9.4 mg/dL (8.5-10.1) Total Bilirubin 0.6 mg/dL (0.2-1.0) Aspartate Amino Transf (AST/SGOT) 60 U/L (15-37) Alanine Aminotransferase (ALT/SGPT) 48 U/L (16-63) Alkaline Phosphatase 69 U/L (46-116) Total Protein 8.7 g/dL (6.4-8.2) Albumin 3.3 g/dL (3.4-5.0) Albumin/Globulin Ratio 0.6 (1.0-1.7) Urine Collection Type Void Urine Color Yellow Urine Clarity Clear Urine pH 6.0 Urine Specific [place] >=1.030 Urine Protein Negative mg/dL (NEG-TRACE) Urine Glucose (UA) Negative mg/dL (NEG) Urine Ketones (Stick) Negative mg/dL (NEG) Urine Blood Negative (NEG) Urine Nitrite Negative (NEG) Urine Bilirubin Negative (NEG) Urine Urobilinogen Dipstick 1.0 mg/dL (0.2 mg/dL) Urine Leukocyte Esterase Negative (NEG) Urine RBC 0 /HPF (0-2) Urine WBC 1-4 /HPF (0-4) Urine Squamous Epithelial Cells Occ /LPF Urine Bacteria Few /HPF (0-FEW) Urine Mucus Mod /LPF Urine Opiates Screen Pos (NEG) Urine Methadone Screen Neg (NEG) Urine Barbiturates Neg (NEG) Urine Phencyclidine Screen Neg (NEG) Urine Amphetamine/Methamphetamine Neg (NEG) Urine Benzodiazepines Screen Neg (NEG) Urine Cocaine Screen Neg (NEG) Urine Cannabinoids Screen Neg (NEG) Urine Ethyl Alcohol Neg (NEG) Objective Assessment Large belinda-rectal abscess s/p I and D, 12/24 Leukocytosis Fever Plan Plan of Care Begin Zosyn per Dr. Bowden s/p steroids CBC in am f/u cultures Pain management per primary D/w nursing Thank you [id number] Fevers - denies previous infections/wounds/surgeries or any health problems. Attending Co-Sign Attending Co-Sign The patient was seen and interviewed as well as examined at the bedside. The chart was reviewed. The case was discussed. Agree with the plan of care. ESDRAS DE JESUS APRN Dec 24, 2018 14:39 QUENTIN BOWDEN MD Dec 24, 2018 14:58
--- NOTE | 2018-12-24 14:56 | CONS ---
DATE OF CONSULTATION: 12/24/2018 Pan Ruvalcaba, nurse practitioner dictating for Dr. Quentin Noble, Infectious Disease. REQUESTING PHYSICIAN: Dr. Solorzano. REASON FOR CONSULTATION: Abscess. HISTORY OF PRESENT ILLNESS: The patient is a 43-year-old -[place] Citizen male who presented with 3-day history of worsening rectal pain with bowel movements. An abdominal/pelvis CT scan demonstrated a large perirectal abscess forming a horseshoe configuration around the left, right and posterior margins of the rectum, collectively measuring up to 5.7 cm x 5.1 cm x 5.4 cm with surrounding inflammatory changes. No drainable fluid collections seen elsewhere. He was taken to the OR earlier today for an I and D. He was given a dose of metronidazole and dexamethasone. Purulent drainage was sent for culture and [place] drains were placed. He has since returned to his room. The patient says he is more comfortable, less pain. He denies prior history of abscesses or skin infections. Denies recent antibiotics. Denies fevers, chills or body aches. Denies nausea, vomiting or diarrhea. PAST MEDICAL HISTORY: No significant past medical history. PAST SURGICAL HISTORY: I and D of perirectal abscess, 12/24/2018. FAMILY HISTORY: Noncontributory. SOCIAL HISTORY: The patient is . He is unemployed. Nonsmoker. He does not have any pets. ALLERGIES: No known drug allergies. MEDICATIONS: One-time dose of metronidazole, one-time dose of dexamethasone, fentanyl, flu vaccine, Dilaudid, DuoNeb, Toradol, morphine, Zofran, Percocet. REVIEW OF SYSTEMS: Per HPI, otherwise all other review of systems are negative. PHYSICAL EXAMINATION: VITAL SIGNS: Temperature is 99.0, blood pressure 105/73, heart rate 103, respiratory rate 20, pulse oximetry 95% on room air. GENERAL: The patient is slightly propped up in bed, alert, in no apparent distress. HEENT: Pupils equally round, reactive. Normal conjunctivae. Oropharynx pink and moist. NECK: Supple. LUNGS: Clear to auscultation. HEART: S1, S2. ABDOMEN: Nondistended, soft and nontender with bowel sounds present. EXTREMITIES: No gross edema or cyanosis. SKIN: Warm to touch. No signs of rash. Perirectal postop dressing in place, I did not remove. NEUROLOGIC: Alert and oriented x 3. LABORATORY DATA: Today's WBC 14.2, hemoglobin 13.5, platelets 320,000, segs 72%, bands 6%. Sodium 136, potassium 3.5, creatinine 1.1, BUN 6, total bilirubin 0.6, AST 60, ALT 48, albumin 3.3. Urine toxicology positive for opiates. Urinalysis unremarkable for infection. Wound cultures pending. CT abdomen/pelvis per HPI. IMPRESSION: 1. Large perirectal abscess status post incision and drainage, 12/24/2018. Cultures pending. 2. Leukocytosis. PLAN: Begin Zosyn. Check a CBC in the a.m. Follow up on culture results. Pain management per primary. Discussed with nursing. Thank you, Dr. Solorzano, for asking us to participate in this patient's care. Should you have further questions or concerns, please call. The patient seen and examined and plan of care implemented by Dr. Quentin Noble. QUENTIN NOBLE MD DR: RAY/juan josé JOB#: [id number] / [id number]
[2018-12-24] MEDS: POTASSIUM CL 20MEQ-0.45% NACL 1,000 ML IV SCH ×2 (15:50→22:25)
[2018-12-24] MEDS: PIPERACILLIN/TAZOBACTAM 3.375 GM in IV NORMAL SALINE 50ML 50 ML IV SCH ×3 (15:50→23:42)
--- NOTE | 2018-12-24 18:37 | NUR ---
1800 Zosyn non administered; previous dose was late and administered @ 1600. Lovenox non administered d/t procedure less than 12 hours ago.
[2018-12-24] MEDS ORDERED: POLYETHYLENE GLYCOL 3350 17 GM PACKET. PO SCH (21:00)
[2018-12-24] MEDS ORDERED: PSYLLIUM HUSK (SUGAR FREE) 1 PKT PACKET PO SCH (21:00)
[2018-12-24] MEDS: DOCUSATE SODIUM 100 MG CAPSULE. PO SCH (21:00)
[2018-12-24] MEDS: oxyCODONE/APAP 5/325 1 TAB TABLET PO PRN (23:42)
[2018-12-25 03:00] VITALS: BP 89/62
[2018-12-25 05:50] LABS: HEMATOCRIT 36.7 % (39.0-53.0); HEMOGLOBIN 12.6 g/dL (13.0-17.5); RED BLOOD COUNT 3.81 x10^6/uL (4.30-5.70); RED CELL DISTRIBUTION WIDTH 13.9 % (11.5-14.5); WHITE BLOOD COUNT 15.3 x10^3/uL (4.0-11.0)
[2018-12-25] MEDS: PIPERACILLIN/TAZOBACTAM 3.375 GM in IV NORMAL SALINE 50ML 50 ML IV SCH ×4 (06:10→23:33)
[2018-12-25 07:00] VITALS: BP 89/62
--- NOTE | 2018-12-25 08:37 | PDOC ---
ARISTIDES MARLEY [employer] AND [employer] 12/25/18 0837: SURGICAL PROGRESS NOTE Subjective pain kely with movement resting Vital Signs Vital Signs Date Time Temp Pulse Resp B/P (MAP) Pulse Ox O2 Delivery O2 Flow Rate FiO2 12/25/18 07:00 99.2 93 16 89/62 (71) 90 Room Air 99.2 12/25/18 03:00 2.0 I&O Intake and Output 12/25/18 07:00 Intake Total 2220 ml Output Total 850 ml Balance 1370 ml Intake Oral 120 ml IV Total 2100 ml Output Urine Total 825 ml Estimated Blood Loss 25 ml General: Alert, Oriented X3, Cooperative, No acute distress Skin: Other (wound viewed, drains in place, purulent drainage ) Labs Laboratory Tests Test 12/24/18 04:45 12/24/18 08:25 12/25/18 05:00 White Blood Count 14.2 x10^3/uL (4.0-11.0) 15.3 x10^3/uL (4.0-11.0) Red Blood Count 4.12 x10^6/uL (4.30-5.70) 3.81 x10^6/uL (4.30-5.70) Hemoglobin 13.5 g/dL (13.0-17.5) 12.6 g/dL (13.0-17.5) Hematocrit 38.8 % (39.0-53.0) 36.7 % (39.0-53.0) Mean Corpuscular Volume 94 fL (79-100) 96 fL (79-100) Mean Corpuscular Hemoglobin 33 pg (25-35) 33 pg (25-35) Mean Corpuscular Hemoglobin Concent 35 g/dL (31-37) 34 g/dL (31-37) Red Cell Distribution Width 14.1 % (11.5-14.5) 13.9 % (11.5-14.5) Platelet Count 320 x10^3/uL (140-400) 285 x10^3/uL (140-400) Neutrophils (%) (Auto) 77 % (31-73) Lymphocytes (%) (Auto) 9 % (24-48) Monocytes (%) (Auto) 13 % (0-9) Eosinophils (%) (Auto) 0 % (0-3) Basophils (%) (Auto) 0 % (0-3) Neutrophils # (Auto) 11.0 x10^3/uL (1.8-7.7) Lymphocytes # (Auto) 1.3 x10^3/uL (1.0-4.8) Monocytes # (Auto) 1.9 x10^3/uL (0.0-1.1) Eosinophils # (Auto) 0.0 x10^3/uL (0.0-0.7) Basophils # (Auto) 0.1 x10^3/uL (0.0-0.2) Segmented Neutrophils % 72 % (35-66) Band Neutrophils % 6 % (0-9) Lymphocytes % 8 % (24-48) Monocytes % 14 % (0-10) Platelet Estimate Adequate (ADEQUATE) Sodium Level 136 mmol/L (136-145) Potassium Level 3.5 mmol/L (3.5-5.1) Chloride Level 97 mmol/L (98-107) Carbon Dioxide Level 30 mmol/L (21-32) Anion Gap 9 (6-14) Blood Urea Nitrogen 6 mg/dL (8-26) Creatinine 1.1 mg/dL (0.7-1.3) Estimated GFR (Cockcroft-Gault) 72.7 BUN/Creatinine Ratio 5 (6-20) Glucose Level 110 mg/dL (70-99) Calcium Level 9.4 mg/dL (8.5-10.1) Total Bilirubin 0.6 mg/dL (0.2-1.0) Aspartate Amino Transf (AST/SGOT) 60 U/L (15-37) Alanine Aminotransferase (ALT/SGPT) 48 U/L (16-63) Alkaline Phosphatase 69 U/L (46-116) Total Protein 8.7 g/dL (6.4-8.2) Albumin 3.3 g/dL (3.4-5.0) Albumin/Globulin Ratio 0.6 (1.0-1.7) Urine Collection Type Void Urine Color Yellow Urine Clarity Clear Urine pH 6.0 Urine Specific [place] >=1.030 Urine Protein Negative mg/dL (NEG-TRACE) Urine Glucose (UA) Negative mg/dL (NEG) Urine Ketones (Stick) Negative mg/dL (NEG) Urine Blood Negative (NEG) Urine Nitrite Negative (NEG) Urine Bilirubin Negative (NEG) Urine Urobilinogen Dipstick 1.0 mg/dL (0.2 mg/dL) Urine Leukocyte Esterase Negative (NEG) Urine RBC 0 /HPF (0-2) Urine WBC 1-4 /HPF (0-4) Urine Squamous Epithelial Cells Occ /LPF Urine Bacteria Few /HPF (0-FEW) Urine Mucus Mod /LPF Urine Opiates Screen Pos (NEG) Urine Methadone Screen Neg (NEG) Urine Barbiturates Neg (NEG) Urine Phencyclidine Screen Neg (NEG) Urine Amphetamine/Methamphetamine Neg (NEG) Urine Benzodiazepines Screen Neg (NEG) Urine Cocaine Screen Neg (NEG) Urine Cannabinoids Screen Neg (NEG) Urine Ethyl Alcohol Neg (NEG) Laboratory Tests Test 12/25/18 05:00 White Blood Count 15.3 x10^3/uL (4.0-11.0) Red Blood Count 3.81 x10^6/uL (4.30-5.70) Hemoglobin 12.6 g/dL (13.0-17.5) Hematocrit 36.7 % (39.0-53.0) Mean Corpuscular Volume 96 fL (79-100) Mean Corpuscular Hemoglobin 33 pg (25-35) Mean Corpuscular Hemoglobin Concent 34 g/dL (31-37) Red Cell Distribution Width 13.9 % (11.5-14.5) Platelet Count 285 x10^3/uL (140-400) Problem List Problems Medical Problems: (1) Perirectal abscess Status: Acute Assessment/Plan abx, wound care BUFFY DUENAS MD 12/25/18 0935: SURGICAL PROGRESS NOTE Assessment/Plan pt seen less pain today continue present care ARISTIDES MARLEY APRN Dec 25, 2018 08:37 BUFFY DUENAS MD Dec 25, 2018 09:35
[2018-12-25] MEDS ORDERED: KETOROLAC 15 MG/ML VIAL. IV PRN (08:45)
[2018-12-25] MEDS: POLYETHYLENE GLYCOL 3350 17 GM PACKET. PO SCH (09:00)
[2018-12-25] MEDS: PSYLLIUM HUSK (SUGAR FREE) 1 PKT PACKET PO SCH (09:00)
[2018-12-25] MEDS: DOCUSATE SODIUM 100 MG CAPSULE. PO SCH ×2 (09:38→20:14)
[2018-12-25] MEDS: POTASSIUM CL 20MEQ-0.45% NACL 1,000 ML IV SCH ×3 (09:39→23:33)
--- NOTE | 2018-12-25 10:28 | PDOC ---
PROGRESS NOTES Chief Complaint Chief Complaint Perirectal abscess s./p I and D 12/24 with 2 nathan drains SIRS,. sepsis no organ dysfcn NON DM History of Present Illness History of Present Illness Gluteus inspected, 2 nathan drains,wet, fecaloid NO fevers, WBC 15 BS ok, non dm SOme pain around the area but less induration ON zosyn PLAN:COnt woudn care, nathan drain and Zosyn and current pain meds LAbs Ff up cx Vitals Vitals Vital Signs Date Time Temp Pulse Resp B/P (MAP) Pulse Ox O2 Delivery O2 Flow Rate FiO2 12/25/18 08:00 Room Air 12/25/18 07:00 99.2 93 16 89/62 (71) 90 99.2 12/25/18 03:00 2.0 Physical Exam General: Alert, Oriented X3, Cooperative, No acute distress Heart: Regular rate Abdomen: Normal bowel sounds, Soft, No tenderness, No hepatosplenomegaly, No masses Extremities: No clubbing, No cyanosis, No edema, Normal pulses, No tenderness/swelling Skin: Other (wound viewed, drains in place, purulent drainage ) Labs LABS Laboratory Tests Test 12/25/18 05:00 White Blood Count 15.3 x10^3/uL (4.0-11.0) Red Blood Count 3.81 x10^6/uL (4.30-5.70) Hemoglobin 12.6 g/dL (13.0-17.5) Hematocrit 36.7 % (39.0-53.0) Mean Corpuscular Volume 96 fL (79-100) Mean Corpuscular Hemoglobin 33 pg (25-35) Mean Corpuscular Hemoglobin Concent 34 g/dL (31-37) Red Cell Distribution Width 13.9 % (11.5-14.5) Platelet Count 285 x10^3/uL (140-400) Review of Systems Review of Systems pain around the buttock area, all else 14 pt neg Assessment and Plan Assessmemt and Plan Problems Medical Problems: (1) Perirectal abscess Status: Acute Comment Review of Relevant I have reviewed the following items yohannes (where applicable) has been applied. Labs Laboratory Tests Test 12/24/18 04:45 12/24/18 08:25 12/25/18 05:00 White Blood Count 14.2 x10^3/uL (4.0-11.0) 15.3 x10^3/uL (4.0-11.0) Red Blood Count 4.12 x10^6/uL (4.30-5.70) 3.81 x10^6/uL (4.30-5.70) Hemoglobin 13.5 g/dL (13.0-17.5) 12.6 g/dL (13.0-17.5) Hematocrit 38.8 % (39.0-53.0) 36.7 % (39.0-53.0) Mean Corpuscular Volume 94 fL (79-100) 96 fL (79-100) Mean Corpuscular Hemoglobin 33 pg (25-35) 33 pg (25-35) Mean Corpuscular Hemoglobin Concent 35 g/dL (31-37) 34 g/dL (31-37) Red Cell Distribution Width 14.1 % (11.5-14.5) 13.9 % (11.5-14.5) Platelet Count 320 x10^3/uL (140-400) 285 x10^3/uL (140-400) Neutrophils (%) (Auto) 77 % (31-73) Lymphocytes (%) (Auto) 9 % (24-48) Monocytes (%) (Auto) 13 % (0-9) Eosinophils (%) (Auto) 0 % (0-3) Basophils (%) (Auto) 0 % (0-3) Neutrophils # (Auto) 11.0 x10^3/uL (1.8-7.7) Lymphocytes # (Auto) 1.3 x10^3/uL (1.0-4.8) Monocytes # (Auto) 1.9 x10^3/uL (0.0-1.1) Eosinophils # (Auto) 0.0 x10^3/uL (0.0-0.7) Basophils # (Auto) 0.1 x10^3/uL (0.0-0.2) Segmented Neutrophils % 72 % (35-66) Band Neutrophils % 6 % (0-9) Lymphocytes % 8 % (24-48) Monocytes % 14 % (0-10) Platelet Estimate Adequate (ADEQUATE) Sodium Level 136 mmol/L (136-145) Potassium Level 3.5 mmol/L (3.5-5.1) Chloride Level 97 mmol/L (98-107) Carbon Dioxide Level 30 mmol/L (21-32) Anion Gap 9 (6-14) Blood Urea Nitrogen 6 mg/dL (8-26) Creatinine 1.1 mg/dL (0.7-1.3) Estimated GFR (Cockcroft-Gault) 72.7 BUN/Creatinine Ratio 5 (6-20) Glucose Level 110 mg/dL (70-99) Calcium Level 9.4 mg/dL (8.5-10.1) Total Bilirubin 0.6 mg/dL (0.2-1.0) Aspartate Amino Transf (AST/SGOT) 60 U/L (15-37) Alanine Aminotransferase (ALT/SGPT) 48 U/L (16-63) Alkaline Phosphatase 69 U/L (46-116) Total Protein 8.7 g/dL (6.4-8.2) Albumin 3.3 g/dL (3.4-5.0) Albumin/Globulin Ratio 0.6 (1.0-1.7) Urine Collection Type Void Urine Color Yellow Urine Clarity Clear Urine pH 6.0 Urine Specific [place] >=1.030 Urine Protein Negative mg/dL (NEG-TRACE) Urine Glucose (UA) Negative mg/dL (NEG) Urine Ketones (Stick) Negative mg/dL (NEG) Urine Blood Negative (NEG) Urine Nitrite Negative (NEG) Urine Bilirubin Negative (NEG) Urine Urobilinogen Dipstick 1.0 mg/dL (0.2 mg/dL) Urine Leukocyte Esterase Negative (NEG) Urine RBC 0 /HPF (0-2) Urine WBC 1-4 /HPF (0-4) Urine Squamous Epithelial Cells Occ /LPF Urine Bacteria Few /HPF (0-FEW) Urine Mucus Mod /LPF Urine Opiates Screen Pos (NEG) Urine Methadone Screen Neg (NEG) Urine Barbiturates Neg (NEG) Urine Phencyclidine Screen Neg (NEG) Urine Amphetamine/Methamphetamine Neg (NEG) Urine Benzodiazepines Screen Neg (NEG) Urine Cocaine Screen Neg (NEG) Urine Cannabinoids Screen Neg (NEG) Urine Ethyl Alcohol Neg (NEG) Laboratory Tests Test 12/25/18 05:00 White Blood Count 15.3 x10^3/uL (4.0-11.0) Red Blood Count 3.81 x10^6/uL (4.30-5.70) Hemoglobin 12.6 g/dL (13.0-17.5) Hematocrit 36.7 % (39.0-53.0) Mean Corpuscular Volume 96 fL (79-100) Mean Corpuscular Hemoglobin 33 pg (25-35) Mean Corpuscular Hemoglobin Concent 34 g/dL (31-37) Red Cell Distribution Width 13.9 % (11.5-14.5) Platelet Count 285 x10^3/uL (140-400) Medications Current Medications Morphine Sulfate (Morphine Sulfate) 4 mg 1X ONCE IV Last administered on 12/24/18at 04:54; Start 12/24/18 at 05:00; Stop 12/24/18 at 05:01; Status DC Ondansetron HCl (Zofran) 4 mg 1X ONCE IV Last administered on 12/24/18at 04:54; Start 12/24/18 at 05:00; Stop 12/24/18 at 05:01; Status DC Iohexol (Omnipaque 300 Mg/ml) 75 ml 1X ONCE IV Last administered on 12/24/18at 05:45; Start 12/24/18 at 05:45; Stop 12/24/18 at 05:46; Status DC Info (CONTRAST GIVEN -- Rx MONITORING) 1 each PRN DAILY PRN MC SEE COMMENTS; Start 12/24/18 at 05:45; Stop 12/26/18 at 05:44 Morphine Sulfate (Morphine Sulfate) 4 mg 1X ONCE IV Last administered on 12/24/18at 07:25; Start 12/24/18 at 07:30; Stop 12/24/18 at 07:31; Status DC Sodium Chloride 1,000 ml @ 1,000 mls/hr 1X ONCE IV Last administered on at 07:24; Start 12/24/18 at 07:30; Stop 12/24/18 at 08:29; Status DC Morphine Sulfate (Morphine Sulfate) 4 mg PRN Q2HR PRN IV PAIN; Start 12/24/18 at 07:30; Stop 12/24/18 at 10:00; Status DC Sodium Chloride 1,000 ml @ 150 mls/hr Q6H40M IV Last administered on 12/24/18at 08:46; Start 12/24/18 at 07:22; Stop 12/24/18 at 14:58; Status DC Fentanyl Citrate (Fentanyl 2ml Vial) 50 mcg 1X ONCE IVP Last administered on 12/24/18at 08:46; Start 12/24/18 at 08:45; Stop 12/24/18 at 08:46; Status DC Influenza Virus Vaccine Quadrival (Afluria Quad 2019-20 (3yr Up) Syringe) 0.5 ml ONCE ONCE VAX IM Last administered on 12/24/18at 22:28; Start 12/24/18 at 10:00; Stop 12/24/18 at 10:01; Status DC Metronidazole 100 ml @ 100 mls/hr 1X ONCE IV Last administered on 12/24/18at 10:44; Start 12/24/18 at 10:15; Stop 12/24/18 at 11:14; Status DC Ondansetron HCl (Zofran) 4 mg PRN Q6HRS PRN IV NAUSEA/VOMITING; Start 12/24/18 at 10:30; Stop 12/24/18 at 18:00; Status DC Fentanyl Citrate (Fentanyl 2ml Vial) 25 mcg PRN Q5MIN PRN IV MILD PAIN 1-3; Start 12/24/18 at 10:30; Stop 12/24/18 at 18:00; Status DC Fentanyl Citrate (Fentanyl 2ml Vial) 50 mcg PRN Q5MIN PRN IV MODERATE TO SEVERE PAIN; Start 12/24/18 at 10:30; Stop 12/24/18 at 20:00; Status DC Morphine Sulfate (Morphine Sulfate) 1 mg PRN Q10MIN PRN IV SEVERE PAIN 7-10; Start 12/24/18 at 10:30; Stop 12/24/18 at 18:00; Status DC Ringer's Solution 1,000 ml @ 30 mls/hr Q24H IV ; Start 12/24/18 at 10:21; Stop 12/24/18 at 16:45; Status DC Lidocaine HCl (Xylocaine-Mpf 1% 2ml Vial) 2 ml PRN 1X PRN ID PRIOR TO IV START; Start 12/24/18 at 10:30; Stop 12/24/18 at 18:00; Status DC Hydromorphone HCl (Dilaudid) 0.5 mg PRN Q10MIN PRN IV SEV PAIN, Second choice; Start 12/24/18 at 10:30; Stop 12/24/18 at 18:00; Status DC Prochlorperazine Edisylate (Compazine) 5 mg PACU PRN PRN IV NAUSEA, MRX1; Start 12/24/18 at 10:30; Stop 12/24/18 at 18:00; Status DC Propofol 20 ml @ As Directed STK-MED ONCE IV ; Start 12/24/18 at 10:34; Stop 12/24/18 at 10:34; Status DC Dexamethasone Sodium Phosphate (Decadron) 4 mg STK-MED ONCE .ROUTE ; Start 12/24/18 at 10:34; Stop 12/24/18 at 10:34; Status DC Lidocaine HCl (Lidocaine Pf 2% Vial) 5 ml STK-MED ONCE .ROUTE ; Start 12/24/18 at 10:34; Stop 12/24/18 at 10:34; Status DC Ondansetron HCl (Zofran) 4 mg STK-MED ONCE .ROUTE ; Start 12/24/18 at 10:34; Stop 12/24/18 at 10:34; Status DC Fentanyl Citrate (Fentanyl 2ml Vial) 100 mcg STK-MED ONCE .ROUTE ; Start 12/24/18 at 10:34; Stop 12/24/18 at 10:35; Status DC Midazolam HCl (Versed) 2 mg STK-MED ONCE .ROUTE ; Start 12/24/18 at 10:35; Stop 12/24/18 at 10:35; Status DC Bupivacaine HCl/ Epinephrine Bitart (Sensorcain-Epi 0.5%-1:190220 Mpf) 30 ml 1X ONCE INJ ; Start 12/24/18 at 11:00; Stop 12/24/18 at 11:01; Status Cancel Cellulose (Surgicel Hemostat 4x8) 1 each STK-MED ONCE .ROUTE Last administered on 12/24/18at 11:29; Start 12/24/18 at 11:28; Stop 12/24/18 at 11:29; Status DC Ketorolac Tromethamine (Toradol 30mg Vial) 30 mg STK-MED ONCE .ROUTE ; Start 12/24/18 at 11:28; Stop 12/24/18 at 11:29; Status DC Sevoflurane (Ultane) 30 ml STK-MED ONCE IH ; Start 12/24/18 at 11:47; Stop 12/24/18 at 11:47; Status DC Albuterol/ Ipratropium (Duoneb) 3 ml STK-MED ONCE .ROUTE ; Start 12/24/18 at 11:51; Stop 12/24/18 at 11:51; Status DC Albuterol/ Ipratropium (Duoneb) 3 ml 1X ONCE NEB Last administered on 12/24/18at 11:55; Start 12/24/18 at 12:00; Stop 12/24/18 at 12:01; Status DC Enoxaparin Sodium (Lovenox 40mg Syringe) 40 mg Q24H SQ ; Start 12/24/18 at 13:00 Sodium Chloride (Normal Saline Flush) 3 ml QSHIFT PRN IV AFTER MEDS AND BLOOD DRAWS; Start 12/24/18 at 12:00 Potassium Chloride/Sodium Chloride 1,000 ml @ 100 mls/hr Q10H IV Last admi nistered on 12/25/18at 09:39; Start 12/24/18 at 11:59 Oxycodone/ Acetaminophen (Percocet 5/325) 1 tab PRN Q4HRS PRN PO MILD PAIN, 1ST CHOICE; Start 12/24/18 at 12:00 Oxycodone/ Acetaminophen (Percocet 5/325) 2 tab PRN Q4HRS PRN PO MODERATE PAIN, SEVERE PAIN Last administered on 12/24/18at 23:42; Start 12/24/18 at 12:00 Naloxone HCl (Narcan) 0.4 mg PRN Q2MIN PRN IV SEE INSTRUCTIONS; Start 12/24/18 at 12:00 Sodium Chloride 1,000 ml @ 25 mls/hr Q24H IV ; Start 12/24/18 at 11:59; Stop 12/24/18 at 14:58; Status DC Hydromorphone HCl (Dilaudid) 0.5 mg PRN Q3HRS PRN IV PAIN; Start 12/24/18 at 12:00 Docusate Sodium (Colace) 100 mg BID PO Last administered on 12/25/18at 09:38; Start 12/24/18 at 21:00 Ondansetron HCl (Zofran) 4 mg PRN Q6HRS PRN IV NAUESA, 1ST CHOICE; Start 12/24/18 at 12:00 Piperacillin Sod/ Tazobactam Sod 3.375 gm/Sodium Chloride 50 ml @ 100 mls/hr Q6HRS IV Last administered on 12/25/18at 06:10; Start 12/24/18 at 14:30 Psyllium Hydrophilic Mucilloid (Metamucil Fiber Packet) 1 pkt QHS PO ; Start 12/24/18 at 21:00; Stop 12/25/18 at 01:52; Status DC Polyethylene Glycol (miraLAX PACKET) 17 gm QHS PO ; Start 12/24/18 at 21:00; Stop 12/25/18 at 01:52; Status DC Polyethylene Glycol (miraLAX PACKET) 17 gm DAILY PO ; Start 12/25/18 at 09:00 Psyllium Hydrophilic Mucilloid (Metamucil Fiber Packet) 1 pkt DAILY PO ; Start 12/25/18 at 09:00 Ketorolac Tromethamine (Toradol 15mg Vial) 15 mg PRN Q6HRS PRN IV PAIN; Start 12/25/18 at 08:45; Stop 12/30/18 at 08:44 Vitals/I & O Vital Sign - Last 24 Hours 12/24/18 12/24/18 12/24/18 12/24/18 10:44 11:55 11:55 12:10 Temp 100.4 99.7 100.4 99.7 Pulse 98 113 116 Resp 16 22 24 B/P (MAP) 111/70 101/70 99/72 Pulse Ox 96 95 94 O2 Delivery Room Air Simple Mask Mask Nasal Cannula O2 Flow Rate 8 8 4 12/24/18 12/24/18 12/24/18 12/24/18 12:25 12:28 12:45 13:00 Temp 99.7 99.0 99.7 99.0 Pulse 107 103 111 Resp 21 20 B/P (MAP) 101/73 105/73 (84) 102/73 (83) Pulse Ox 94 95 94 O2 Delivery Nasal Cannula Nasal Cannula Room Air Room Air O2 Flow Rate 4 4 12/24/18 12/24/18 12/24/18 12/24/18 13:15 13:30 14:00 14:30 Pulse 110 113 106 112 B/P (MAP) 110/78 (89) 95/73 (80) 105/68 (80) 113/74 (87) Pulse Ox 94 94 92 92 O2 Delivery Room Air Room Air Room Air Room Air 12/24/18 12/24/18 12/24/18 12/24/18 15:00 15:30 19:00 20:04 Temp 98.7 101.7 98.7 101.7 Pulse 111 104 Resp 16 18 B/P (MAP) 113/79 (90) 99/64 (76) Pulse Ox 91 92 O2 Delivery Room Air Room Air Room Air Room Air 12/24/18 12/24/18 12/25/18 12/25/18 23:00 23:42 01:23 03:00 Temp 101.9 98.6 101.9 98.6 Pulse 105 90 Resp 18 18 18 18 B/P (MAP) 93/58 (70) 89/62 (71) Pulse Ox 91 91 91 97 O2 Delivery Room Air Room Air Room Air Nasal Cannula O2 Flow Rate 2.0 12/25/18 12/25/18 07:00 08:00 Temp 99.2 99.2 Pulse 93 Resp 16 B/P (MAP) 89/62 (71) Pulse Ox 90 O2 Delivery Room Air Room Air Intake and Output 12/24/18 12/24/18 12/25/18 15:00 23:00 07:00 Intake Total 850 ml 1370 ml Output Total 25 ml 325 ml 500 ml Balance 825 ml -325 ml 870 ml DIALLO MAHMOOD MD Dec 25, 2018 10:28
--- NOTE | 2018-12-25 10:54 | NUR ---
SS following for discharge planning. SS reviewed pt chart. Pt is from home with spouse and is currently on room air. SS will continue to follow for discharge planning.
[2018-12-25 11:00] VITALS: BP 105/74
--- NOTE | 2018-12-25 12:24 | PDOC ---
Infectious Disease Note Subjective Subjective + Flatus. Still some pain with cough or movement Eating some. No F/C/S/N/V/D/SOA Tolerating Zosyn Vital Sign Vital Signs Vital Signs Date Time Temp Pulse Resp B/P (MAP) Pulse Ox O2 Delivery O2 Flow Rate FiO2 12/25/18 11:00 99.7 108 16 105/74 (84) 90 Nasal Cannula 2.5 99.7 Physical Exam PHYSICAL EXAM GENERAL: The patient is slightly propped up in bed, alert, in no apparent distress. HEENT: Pupils equally round, reactive. Normal conjunctivae. Oropharynx pink and moist. NECK: Supple. LUNGS: Clear to auscultation. HEART: S1, S2. ABDOMEN: Nondistended, soft and nontender with bowel sounds present. EXTREMITIES: No gross edema or cyanosis. SKIN: Warm to touch. No signs of rash. Perirectal postop dressing in place, I did not remove. NEUROLOGIC: Alert and oriented x 3 Labs Lab Laboratory Tests Test 12/25/18 05:00 White Blood Count 15.3 x10^3/uL (4.0-11.0) Red Blood Count 3.81 x10^6/uL (4.30-5.70) Hemoglobin 12.6 g/dL (13.0-17.5) Hematocrit 36.7 % (39.0-53.0) Mean Corpuscular Volume 96 fL (79-100) Mean Corpuscular Hemoglobin 33 pg (25-35) Mean Corpuscular Hemoglobin Concent 34 g/dL (31-37) Red Cell Distribution Width 13.9 % (11.5-14.5) Platelet Count 285 x10^3/uL (140-400) Objective Assessment Large belinda-rectal abscess s/p I and D, 12/24 Leukocytosis Fever Plan Plan of Care Cont Zosyn s/p steroids 12/24 f/u cultures Pain management per primary D/w nursing QUENTIN ASTUDILLO MD Dec 25, 2018 12:24
[2018-12-25] MEDS: ENOXAPARIN 40 MG/0.4 ML SYRINGE. SQ SCH (13:04)
[2018-12-25 15:00] VITALS: BP 105/67
[2018-12-25] MEDS: oxyCODONE/APAP 5/325 1 TAB TABLET PO PRN ×2 (17:40→23:33)
[2018-12-25] MEDS: LACTOBACILLUS RHAMNOSUS GG 1 CAPSULE. PO SCH (20:14)
[2018-12-25 23:00] VITALS: BP 109/73
[2018-12-26 03:00] VITALS: BP 101/71
[2018-12-26] MEDS: oxyCODONE/APAP 5/325 1 TAB TABLET PO PRN (05:40)
[2018-12-26] MEDS: PIPERACILLIN/TAZOBACTAM 3.375 GM in IV NORMAL SALINE 50ML 50 ML IV SCH ×3 (05:40→18:20)
[2018-12-26 07:00] VITALS: BP 114/79
[2018-12-26 07:15] LABS: CALCIUM 9.1 mg/dL (8.5-10.1); CREATININE 1.2 mg/dL (0.7-1.3); GFR 79.6
[2018-12-26 07:20] LABS: BASO # 0.1 x10^3/uL (0.0-0.2); BASO % 1 % (0-3); EOS # 0.1 x10^3/uL (0.0-0.7); EOS % 1 % (0-3); HEMATOCRIT 36.8 % (39.0-53.0); HEMOGLOBIN 12.5 g/dL (13.0-17.5); LYMPH # 1.5 x10^3/uL (1.0-4.8); LYMPH % 12 % (24-48); MEAN CORPUSCULAR HEMOGLOBIN 33 pg (25-35); MEAN CORPUSCULAR HGB CONC 34 g/dL (31-37); MEAN CORPUSCULAR VOLUME 96 fL (79-100); MONO # 1.3 x10^3/uL (0.0-1.1); MONO % 11 % (0-9); NEUT # 9.1 x10^3/uL (1.8-7.7); NEUT % 75 % (31-73); PLATELET COUNT 333 x10^3/uL (140-400); RED BLOOD COUNT 3.82 x10^6/uL (4.30-5.70); RED CELL DISTRIBUTION WIDTH 14.3 % (11.5-14.5); WHITE BLOOD COUNT 12.1 x10^3/uL (4.0-11.0)
[2018-12-26] MEDS: LACTOBACILLUS RHAMNOSUS GG 1 CAPSULE. PO SCH (08:27)
[2018-12-26] MEDS: POLYETHYLENE GLYCOL 3350 17 GM PACKET. PO SCH (08:27)
[2018-12-26] MEDS: DOCUSATE SODIUM 100 MG CAPSULE. PO SCH ×2 (08:27→21:00)
[2018-12-26] MEDS: PSYLLIUM HUSK (SUGAR FREE) 1 PKT PACKET PO SCH (08:27)
--- NOTE | 2018-12-26 09:27 | PDOC ---
Infectious Disease Note Subjective Subjective + Flatus. Still some pain with cough or movement but better Eating some. No F/C/S/N/V/D/SOA Tolerating Zosyn ROS ROS o/w neg Vital Sign Vital Signs Vital Signs Date Time Temp Pulse Resp B/P (MAP) Pulse Ox O2 Delivery O2 Flow Rate FiO2 12/26/18 07:35 90 Room Air 2.5 12/26/18 07:00 99.4 93 16 114/79 (91) 99.4 Physical Exam PHYSICAL EXAM GENERAL: The patient is slightly propped up in bed, alert, in no apparent distress. Looks better HEENT: Pupils equally round, reactive. Normal conjunctivae. Oropharynx pink and moist. NECK: Supple. LUNGS: Clear to auscultation. HEART: S1, S2. ABDOMEN: Nondistended, soft and nontender with bowel sounds present. EXTREMITIES: No gross edema or cyanosis. SKIN: Warm to touch. No signs of rash. Perirectal postop dressing in place, I did not remove. NEUROLOGIC: Alert and oriented x 3 Labs Lab Laboratory Tests Test 12/26/18 05:20 White Blood Count 12.1 x10^3/uL (4.0-11.0) Red Blood Count 3.82 x10^6/uL (4.30-5.70) Hemoglobin 12.5 g/dL (13.0-17.5) Hematocrit 36.8 % (39.0-53.0) Mean Corpuscular Volume 96 fL (79-100) Mean Corpuscular Hemoglobin 33 pg (25-35) Mean Corpuscular Hemoglobin Concent 34 g/dL (31-37) Red Cell Distribution Width 14.3 % (11.5-14.5) Platelet Count 333 x10^3/uL (140-400) Neutrophils (%) (Auto) 75 % (31-73) Lymphocytes (%) (Auto) 12 % (24-48) Monocytes (%) (Auto) 11 % (0-9) Eosinophils (%) (Auto) 1 % (0-3) Basophils (%) (Auto) 1 % (0-3) Neutrophils # (Auto) 9.1 x10^3/uL (1.8-7.7) Lymphocytes # (Auto) 1.5 x10^3/uL (1.0-4.8) Monocytes # (Auto) 1.3 x10^3/uL (0.0-1.1) Eosinophils # (Auto) 0.1 x10^3/uL (0.0-0.7) Basophils # (Auto) 0.1 x10^3/uL (0.0-0.2) Sodium Level 139 mmol/L (136-145) Potassium Level 4.0 mmol/L (3.5-5.1) Chloride Level 103 mmol/L (98-107) Carbon Dioxide Level 28 mmol/L (21-32) Anion Gap 8 (6-14) Blood Urea Nitrogen 6 mg/dL (8-26) Creatinine 1.2 mg/dL (0.7-1.3) Estimated GFR (Cockcroft-Gault) 79.6 Glucose Level 78 mg/dL (70-99) Calcium Level 9.1 mg/dL (8.5-10.1) Micro Microbiology 12/24/18 Anaerobic/Aerobic Culture, Resulted Pending 12/24/18 Anaerobic Culture Result 1 (DINESH), Resulted Pending 12/24/18 Aerobic Culture, Resulted Pending 12/24/18 Aerobic Culture Result 1 (DINESH), Resulted Pending 12/24/18 Gram Stain - Final, Resulted 12/24/18 Gram Stain Result 1 (DINESH) - Final, Resulted 12/24/18 Gram Stain Result 2 (DINESH) - Final, Resulted 12/24/18 Gram Stain Result 3 (DINESH) - Final, Resulted Objective Assessment Large belinda-rectal abscess s/p I and D, 12/24. GNR and GPC Leukocytosis improving Fever Plan Plan of Care Cont Zosyn change to po soon s/p steroids 12/24 f/u cultures Pain management per primary Await surgical f/u QUENTIN ASTUDILLO MD Dec 26, 2018 09:27
--- NOTE | 2018-12-26 10:54 | PDOC ---
ARISTIDES MARLEY [employer] 12/26/18 1054: SURGICAL PROGRESS NOTE Subjective resting some improvement in pain Vital Signs Vital Signs Date Time Temp Pulse Resp B/P (MAP) Pulse Ox O2 Delivery O2 Flow Rate FiO2 12/26/18 08:00 Room Air 12/26/18 07:35 90 2.5 12/26/18 07:00 99.4 93 16 114/79 (91) 99.4 I&O Intake and Output 12/26/18 06:59 Intake Total 235 ml Balance 235 ml Intake Oral 235 ml # Voids 3 General: Alert, Oriented X3, Cooperative, No acute distress Skin: Other (wound with purulent drainage) Labs Laboratory Tests Test 12/25/18 05:00 12/26/18 05:20 White Blood Count 15.3 x10^3/uL (4.0-11.0) 12.1 x10^3/uL (4.0-11.0) Red Blood Count 3.81 x10^6/uL (4.30-5.70) 3.82 x10^6/uL (4.30-5.70) Hemoglobin 12.6 g/dL (13.0-17.5) 12.5 g/dL (13.0-17.5) Hematocrit 36.7 % (39.0-53.0) 36.8 % (39.0-53.0) Mean Corpuscular Volume 96 fL (79-100) 96 fL (79-100) Mean Corpuscular Hemoglobin 33 pg (25-35) 33 pg (25-35) Mean Corpuscular Hemoglobin Concent 34 g/dL (31-37) 34 g/dL (31-37) Red Cell Distribution Width 13.9 % (11.5-14.5) 14.3 % (11.5-14.5) Platelet Count 285 x10^3/uL (140-400) 333 x10^3/uL (140-400) Neutrophils (%) (Auto) 75 % (31-73) Lymphocytes (%) (Auto) 12 % (24-48) Monocytes (%) (Auto) 11 % (0-9) Eosinophils (%) (Auto) 1 % (0-3) Basophils (%) (Auto) 1 % (0-3) Neutrophils # (Auto) 9.1 x10^3/uL (1.8-7.7) Lymphocytes # (Auto) 1.5 x10^3/uL (1.0-4.8) Monocytes # (Auto) 1.3 x10^3/uL (0.0-1.1) Eosinophils # (Auto) 0.1 x10^3/uL (0.0-0.7) Basophils # (Auto) 0.1 x10^3/uL (0.0-0.2) Sodium Level 139 mmol/L (136-145) Potassium Level 4.0 mmol/L (3.5-5.1) Chloride Level 103 mmol/L (98-107) Carbon Dioxide Level 28 mmol/L (21-32) Anion Gap 8 (6-14) Blood Urea Nitrogen 6 mg/dL (8-26) Creatinine 1.2 mg/dL (0.7-1.3) Estimated GFR (Cockcroft-Gault) 79.6 Glucose Level 78 mg/dL (70-99) Calcium Level 9.1 mg/dL (8.5-10.1) Laboratory Tests Test 12/26/18 05:20 White Blood Count 12.1 x10^3/uL (4.0-11.0) Red Blood Count 3.82 x10^6/uL (4.30-5.70) Hemoglobin 12.5 g/dL (13.0-17.5) Hematocrit 36.8 % (39.0-53.0) Mean Corpuscular Volume 96 fL (79-100) Mean Corpuscular Hemoglobin 33 pg (25-35) Mean Corpuscular Hemoglobin Concent 34 g/dL (31-37) Red Cell Distribution Width 14.3 % (11.5-14.5) Platelet Count 333 x10^3/uL (140-400) Neutrophils (%) (Auto) 75 % (31-73) Lymphocytes (%) (Auto) 12 % (24-48) Monocytes (%) (Auto) 11 % (0-9) Eosinophils (%) (Auto) 1 % (0-3) Basophils (%) (Auto) 1 % (0-3) Neutrophils # (Auto) 9.1 x10^3/uL (1.8-7.7) Lymphocytes # (Auto) 1.5 x10^3/uL (1.0-4.8) Monocytes # (Auto) 1.3 x10^3/uL (0.0-1.1) Eosinophils # (Auto) 0.1 x10^3/uL (0.0-0.7) Basophils # (Auto) 0.1 x10^3/uL (0.0-0.2) Sodium Level 139 mmol/L (136-145) Potassium Level 4.0 mmol/L (3.5-5.1) Chloride Level 103 mmol/L (98-107) Carbon Dioxide Level 28 mmol/L (21-32) Anion Gap 8 (6-14) Blood Urea Nitrogen 6 mg/dL (8-26) Creatinine 1.2 mg/dL (0.7-1.3) Estimated GFR (Cockcroft-Gault) 79.6 Glucose Level 78 mg/dL (70-99) Calcium Level 9.1 mg/dL (8.5-10.1) Problem List Problems Medical Problems: (1) Perirectal abscess Status: Acute Assessment/Plan continue drains and abx BUFFY DUENAS MD 12/26/18 1309: SURGICAL PROGRESS NOTE Assessment/Plan pt seen moderate amount of drainage continue same ARISTIDES MARLEY [employer] Dec 26, 2018 10:54 BUFFY DUENAS MD Dec 26, 2018 13:09
[2018-12-26 11:00] VITALS: BP 105/81
--- NOTE | 2018-12-26 12:05 | PDOC ---
[employer] PROGRESS NOTE Chief Complaint Chief Complaint Perirectal abscess s./p I and D 12/24 with 2 nathan drains SIRS,. sepsis no organ dysfunction NON DM History of Present Illness History of Present Illness 12/26/18 Pt was seen and examined at bedside POD 2 abscess drainage Pt was resting Pt still in some pain Gluteus was inspected Chart and labs reviewed Afebrile WBC was 12.1, down from 15.3 D/w RN 12/25/18 Pt seen and examined by Dr. Aburot Gluteus inspected, 2 nathan drains,wet, fecaloid NO fevers, WBC 15 BS ok, non dm SOme pain around the area but less induration ON zosyn Vitals/I&O Vitals/I&O: Vital Signs Date Time Temp Pulse Resp B/P (MAP) Pulse Ox O2 Delivery O2 Flow Rate FiO2 12/26/18 08:00 Room Air 12/26/18 07:35 90 2.5 12/26/18 07:00 99.4 93 16 114/79 (91) 99.4 I & O 12/25/18 12/25/18 12/26/18 15:00 23:00 07:00 Intake Total 235 ml 0 ml Balance 235 ml 0 ml Physical Exam Physical Exam: GENERAL: The patient is slightly propped up in bed, alert, in no apparent distress. Looks better HEENT: Pupils equally round, reactive. Normal conjunctivae. Oropharynx pink and moist. NECK: Supple. LUNGS: Clear to auscultation. HEART: S1, S2. ABDOMEN: Nondistended, soft and nontender with bowel sounds present. EXTREMITIES: No gross edema or cyanosis. SKIN: Warm to touch. No signs of rash. Perirectal postop dressing in place, I did not remove. NEUROLOGIC: Alert and oriented x 3 General: Alert, Oriented X3, Cooperative, No acute distress Heart: Regular rate Abdomen: Normal bowel sounds, Soft, No tenderness, No hepatosplenomegaly, No masses Extremities: No clubbing, No cyanosis, No edema, Normal pulses, No tenderness/swelling Skin: Other (wound with purulent drainage) Labs Labs: Laboratory Tests Test 12/26/18 05:20 White Blood Count 12.1 x10^3/uL (4.0-11.0) Red Blood Count 3.82 x10^6/uL (4.30-5.70) Hemoglobin 12.5 g/dL (13.0-17.5) Hematocrit 36.8 % (39.0-53.0) Mean Corpuscular Volume 96 fL (79-100) Mean Corpuscular Hemoglobin 33 pg (25-35) Mean Corpuscular Hemoglobin Concent 34 g/dL (31-37) Red Cell Distribution Width 14.3 % (11.5-14.5) Platelet Count 333 x10^3/uL (140-400) Neutrophils (%) (Auto) 75 % (31-73) Lymphocytes (%) (Auto) 12 % (24-48) Monocytes (%) (Auto) 11 % (0-9) Eosinophils (%) (Auto) 1 % (0-3) Basophils (%) (Auto) 1 % (0-3) Neutrophils # (Auto) 9.1 x10^3/uL (1.8-7.7) Lymphocytes # (Auto) 1.5 x10^3/uL (1.0-4.8) Monocytes # (Auto) 1.3 x10^3/uL (0.0-1.1) Eosinophils # (Auto) 0.1 x10^3/uL (0.0-0.7) Basophils # (Auto) 0.1 x10^3/uL (0.0-0.2) Sodium Level 139 mmol/L (136-145) Potassium Level 4.0 mmol/L (3.5-5.1) Chloride Level 103 mmol/L (98-107) Carbon Dioxide Level 28 mmol/L (21-32) Anion Gap 8 (6-14) Blood Urea Nitrogen 6 mg/dL (8-26) Creatinine 1.2 mg/dL (0.7-1.3) Estimated GFR (Cockcroft-Gault) 79.6 Glucose Level 78 mg/dL (70-99) Calcium Level 9.1 mg/dL (8.5-10.1) Review of Systems Review of Systems: Pt denies fever Pt denies n/v/d Assessment and Plan Assessmemt and Plan Problems Medical Problems: (1) Perirectal abscess Status: Acute Assessment Perirectal abscess Fever Flatus Plan Wound care DVT prophylaxis PT/OT Home meds IV abx per ID Hope to D/C in AM Comment Review of Relevant I have reviewed the following items yohannes (where applicable) has been applied. Medications: Current Medications Medications (Trade) Dose Ordered Sig/Shereen Route PRN Reason Start Time Stop Time Status Last Admin Dose Admin Lactobacillus Rhamnosus (Culturelle) 1 cap BID PO 12/25/18 21:00 12/26/18 08:27 TONNY BANKS III DO Dec 26, 2018 12:05
[2018-12-26] MEDS: ENOXAPARIN 40 MG/0.4 ML SYRINGE. SQ SCH (12:26)
[2018-12-26] MEDS: POTASSIUM CL 20MEQ-0.45% NACL 1,000 ML IV SCH ×2 (13:59→21:11)
[2018-12-26 15:00] VITALS: BP 102/72
[2018-12-26 19:15] VITALS: BP 107/80
--- NOTE | 2018-12-26 21:00 | NUR ---
RN administered the lactobacillus at 0030 per patient request.
[2018-12-26 23:29] VITALS: BP 107/76
[2018-12-27] MEDS: LACTOBACILLUS RHAMNOSUS GG 1 CAPSULE. PO SCH ×2 (01:01→08:24)
[2018-12-27] MEDS: oxyCODONE/APAP 5/325 1 TAB TABLET PO PRN (01:01)
[2018-12-27] MEDS: PIPERACILLIN/TAZOBACTAM 3.375 GM in IV NORMAL SALINE 50ML 50 ML IV SCH ×2 (01:04→05:50)
[2018-12-27 03:00] VITALS: BP 113/77
[2018-12-27 05:35] LABS: BASO # 0.1 x10^3/uL (0.0-0.2); BASO % 1 % (0-3); EOS # 0.2 x10^3/uL (0.0-0.7); EOS % 3 % (0-3); HEMATOCRIT 36.8 % (39.0-53.0); HEMOGLOBIN 12.7 g/dL (13.0-17.5); LYMPH # 1.3 x10^3/uL (1.0-4.8); LYMPH % 14 % (24-48); MEAN CORPUSCULAR HEMOGLOBIN 33 pg (25-35); MEAN CORPUSCULAR HGB CONC 35 g/dL (31-37); MEAN CORPUSCULAR VOLUME 96 fL (79-100); MONO % 11 % (0-9); NEUT # 6.7 x10^3/uL (1.8-7.7); NEUT % 72 % (31-73); PLATELET COUNT 406 x10^3/uL (140-400); RED BLOOD COUNT 3.83 x10^6/uL (4.30-5.70); WHITE BLOOD COUNT 9.3 x10^3/uL (4.0-11.0)
[2018-12-27 06:04] LABS: ALBUMIN 2.6 g/dL (3.4-5.0); ALBUMIN/GLOBULIN RATIO 0.5 (1.0-1.7); CALCIUM 9.3 mg/dL (8.5-10.1); CREATININE 1.2 mg/dL (0.7-1.3); GFR 79.6; POTASSIUM 4.1 mmol/L (3.5-5.1); TOTAL BILIRUBIN 0.4 mg/dL (0.2-1.0); TOTAL PROTEIN 7.8 g/dL (6.4-8.2)
[2018-12-27 07:00] VITALS: BP 114/82
[2018-12-27] MEDS: DOCUSATE SODIUM 100 MG CAPSULE. PO SCH (07:56)
[2018-12-27] MEDS: POLYETHYLENE GLYCOL 3350 17 GM PACKET. PO SCH (07:56)
[2018-12-27] MEDS: PSYLLIUM HUSK (SUGAR FREE) 1 PKT PACKET PO SCH (07:56)
[2018-12-27] MEDS: POTASSIUM CL 20MEQ-0.45% NACL 1,000 ML IV SCH (08:28)
--- NOTE | 2018-12-27 10:56 | PDOC ---
Infectious Disease Note Subjective Subjective + Flatus/BM. Pain is better Eating more. No F/C/S/N/V/D/SOA Tolerating Zosyn ROS ROS o/w neg Vital Sign Vital Signs Vital Signs Date Time Temp Pulse Resp B/P (MAP) Pulse Ox O2 Delivery O2 Flow Rate FiO2 12/27/18 08:00 Room Air 12/27/18 07:00 98.1 85 14 114/82 (93) 98 98.1 12/26/18 07:35 2.5 Physical Exam PHYSICAL EXAM GENERAL: The patient is slightly propped up in bed, alert, in no apparent distress. Looks better HEENT: Pupils equally round, reactive. Normal conjunctivae. Oropharynx pink and moist. NECK: Supple. LUNGS: Clear to auscultation. HEART: S1, S2. ABDOMEN: Nondistended, soft and nontender with bowel sounds present. EXTREMITIES: No gross edema or cyanosis. SKIN: Warm to touch. No signs of rash. Perirectal postop wound with Edwin. No gross induration/erythema - mild tender on palpation NEUROLOGIC: Alert and oriented x 3 Labs Lab Laboratory Tests Test 12/27/18 03:40 White Blood Count 9.3 x10^3/uL (4.0-11.0) Red Blood Count 3.83 x10^6/uL (4.30-5.70) Hemoglobin 12.7 g/dL (13.0-17.5) Hematocrit 36.8 % (39.0-53.0) Mean Corpuscular Volume 96 fL (79-100) Mean Corpuscular Hemoglobin 33 pg (25-35) Mean Corpuscular Hemoglobin Concent 35 g/dL (31-37) Red Cell Distribution Width 14.0 % (11.5-14.5) Platelet Count 406 x10^3/uL (140-400) Neutrophils (%) (Auto) 72 % (31-73) Lymphocytes (%) (Auto) 14 % (24-48) Monocytes (%) (Auto) 11 % (0-9) Eosinophils (%) (Auto) 3 % (0-3) Basophils (%) (Auto) 1 % (0-3) Neutrophils # (Auto) 6.7 x10^3/uL (1.8-7.7) Lymphocytes # (Auto) 1.3 x10^3/uL (1.0-4.8) Monocytes # (Auto) 1.0 x10^3/uL (0.0-1.1) Eosinophils # (Auto) 0.2 x10^3/uL (0.0-0.7) Basophils # (Auto) 0.1 x10^3/uL (0.0-0.2) Sodium Level 138 mmol/L (136-145) Potassium Level 4.1 mmol/L (3.5-5.1) Chloride Level 102 mmol/L (98-107) Carbon Dioxide Level 27 mmol/L (21-32) Anion Gap 9 (6-14) Blood Urea Nitrogen 6 mg/dL (8-26) Creatinine 1.2 mg/dL (0.7-1.3) Estimated GFR (Cockcroft-Gault) 79.6 BUN/Creatinine Ratio 5 (6-20) Glucose Level 84 mg/dL (70-99) Calcium Level 9.3 mg/dL (8.5-10.1) Total Bilirubin 0.4 mg/dL (0.2-1.0) Aspartate Amino Transf (AST/SGOT) 45 U/L (15-37) Alanine Aminotransferase (ALT/SGPT) 56 U/L (16-63) Alkaline Phosphatase 69 U/L (46-116) Total Protein 7.8 g/dL (6.4-8.2) Albumin 2.6 g/dL (3.4-5.0) Albumin/Globulin Ratio 0.5 (1.0-1.7) Micro Beta hemolytic Streptococcus, group C 1+ Penicillin and ampicillin are drugs of choice for treatment of beta-hemolytic streptococcal infections. Susceptibility testing of penicillins and other beta-lactam agents approved by the FDA for treatment of beta-hemolytic streptococcal infections need not be performed routinely because nonsusceptible isolates are extremely rare in any beta-hemolytic streptococcus and have not been reported for Streptococcus pyogenes (group A). (CLSI) GRAM STAIN Final Final report GRAM STAIN RES 1 Final Gram positive cocci Rare seen GRAM STAIN RES 2 Final Comment Microbiology 12/24/18 Anaerobic/Aerobic Culture, Resulted Pending 12/24/18 Anaerobic Culture Result 1 (DINESH), Resulted Pending 12/24/18 Aerobic Culture, Resulted Pending 12/24/18 Aerobic Culture Result 1 (DINESH), Resulted Pending 12/24/18 Gram Stain - Final, Resulted 12/24/18 Gram Stain Result 1 (DINESH) - Final, Resulted 12/24/18 Gram Stain Result 2 (DINESH) - Final, Resulted 12/24/18 Gram Stain Result 3 (DINESH) - Final, Resulted Objective Assessment Large belinda-rectal abscess s/p I and D, 12/24. GNR and GPC Strep C Leukocytosis improving Fever Plan Plan of Care Discont Zosyn change to po Augmentin for at least 7 days s/p steroids 12/24 f/u cultures Pain management per primary Await surgical f/u D/w nursing QUENTIN ASTUDILLO MD Dec 27, 2018 10:56
[2018-12-27 11:00] VITALS: BP 73/50
[2018-12-27] MEDS ORDERED: AMOXICILLIN/K CLAV 875/125MG TABLET. PO ONE (12:00)
[2018-12-27] MEDS: ENOXAPARIN 40 MG/0.4 ML SYRINGE. SQ SCH (13:00)
--- NOTE | 2018-12-27 13:00 | PDOC ---
[facility] PROGRESS NOTE Chief Complaint Chief Complaint Perirectal abscess History of Present Illness History of Present Illness 12/27/18 Pt was seen and examined at bedside Pt feeling better, requested to go home Improvement in pain Charts and labs reviewed DW RN 12/26/18 Pt was seen and examined at bedside POD 2 abscess drainage Pt was resting Pt still in some pain Gluteus was inspected Chart and labs reviewed Afebrile WBC was 12.1, down from 15.3 D/w RN 12/25/18 Pt seen and examined by Dr. Aburto Gluteus inspected, 2 nathan drains,wet, fecaloid NO fevers, WBC 15 BS ok, non dm SOme pain around the area but less induration ON zosyn Vitals/I&O Vitals/I&O: Vital Signs Date Time Temp Pulse Resp B/P (MAP) Pulse Ox O2 Delivery O2 Flow Rate FiO2 12/27/18 11:00 97.7 101 18 73/50 (58) 100 Room Air 97.7 12/26/18 07:35 2.5 I & O 12/26/18 12/26/18 12/27/18 15:00 23:00 07:00 Intake Total 120 ml 120 ml 360 ml Output Total 600 ml Balance -480 ml 120 ml 360 ml Physical Exam Physical Exam: GENERAL: The patient is slightly propped up in bed, alert, in no apparent distress. Looks better HEENT: Pupils equally round, reactive. Normal conjunctivae. Oropharynx pink and moist. NECK: Supple. LUNGS: Clear to auscultation. HEART: S1, S2. ABDOMEN: Nondistended, soft and nontender with bowel sounds present. EXTREMITIES: No gross edema or cyanosis. SKIN: Warm to touch. No signs of rash. Perirectal postop wound with Ross. No gross induration/erythema - mild tender on palpation NEUROLOGIC: Alert and oriented x 3 General: Alert, Oriented X3, Cooperative, No acute distress Heart: Regular rate Lungs: Clear Abdomen: Normal bowel sounds, Soft, No tenderness, No hepatosplenomegaly, No masses Extremities: No clubbing, No cyanosis, No edema, Normal pulses, No tenderness/swelling Skin: No rashes, Other (wound with purulent drainage) Labs Labs: Laboratory Tests Test 12/27/18 03:40 White Blood Count 9.3 x10^3/uL (4.0-11.0) Red Blood Count 3.83 x10^6/uL (4.30-5.70) Hemoglobin 12.7 g/dL (13.0-17.5) Hematocrit 36.8 % (39.0-53.0) Mean Corpuscular Volume 96 fL (79-100) Mean Corpuscular Hemoglobin 33 pg (25-35) Mean Corpuscular Hemoglobin Concent 35 g/dL (31-37) Red Cell Distribution Width 14.0 % (11.5-14.5) Platelet Count 406 x10^3/uL (140-400) Neutrophils (%) (Auto) 72 % (31-73) Lymphocytes (%) (Auto) 14 % (24-48) Monocytes (%) (Auto) 11 % (0-9) Eosinophils (%) (Auto) 3 % (0-3) Basophils (%) (Auto) 1 % (0-3) Neutrophils # (Auto) 6.7 x10^3/uL (1.8-7.7) Lymphocytes # (Auto) 1.3 x10^3/uL (1.0-4.8) Monocytes # (Auto) 1.0 x10^3/uL (0.0-1.1) Eosinophils # (Auto) 0.2 x10^3/uL (0.0-0.7) Basophils # (Auto) 0.1 x10^3/uL (0.0-0.2) Sodium Level 138 mmol/L (136-145) Potassium Level 4.1 mmol/L (3.5-5.1) Chloride Level 102 mmol/L (98-107) Carbon Dioxide Level 27 mmol/L (21-32) Anion Gap 9 (6-14) Blood Urea Nitrogen 6 mg/dL (8-26) Creatinine 1.2 mg/dL (0.7-1.3) Estimated GFR (Cockcroft-Gault) 79.6 BUN/Creatinine Ratio 5 (6-20) Glucose Level 84 mg/dL (70-99) Calcium Level 9.3 mg/dL (8.5-10.1) Total Bilirubin 0.4 mg/dL (0.2-1.0) Aspartate Amino Transf (AST/SGOT) 45 U/L (15-37) Alanine Aminotransferase (ALT/SGPT) 56 U/L (16-63) Alkaline Phosphatase 69 U/L (46-116) Total Protein 7.8 g/dL (6.4-8.2) Albumin 2.6 g/dL (3.4-5.0) Albumin/Globulin Ratio 0.5 (1.0-1.7) Review of Systems Review of Systems: No nausea, no vomiting No chest pain, no palpitations Assessment and Plan Assessmemt and Plan Problems Medical Problems: (1) Perirectal abscess Status: Acute Assessment Perirectal abscess Plan Continue draining and antibiotics per surgery Pain control Home meds Full code D/C if approved by surgery Comment Review of Relevant I have reviewed the following items yohannes (where applicable) has been applied. Medications: Current Medications Medications (Trade) Dose Ordered Sig/Shereen Route PRN Reason Start Time Stop Time Status Last Admin Dose Admin Amoxicillin/ Clavulanate Potassium (Augmentin 875/ 125mg) 1 tab 1X ONCE PO 12/27/18 12:00 12/27/18 12:01 DC 12/27/18 12:05 TONNY BANKS III DO Dec 27, 2018 13:00
--- NOTE | 2018-12-27 13:03 | PDOC ---
Provider Note Provider Note SURG pt seen home today on po Abx keep drains til seen in office Tuesday BUFFY DUENAS MD Dec 27, 2018 13:03
[2018-12-27 15:00] VITALS: BP 87/61
--- NOTE | 2018-12-27 16:12 | NUR ---
Discharge Note: ALAN CASANOVA [address] [place] [address] Discharge instructions and discharge home medications reviewed with Patient and a copy given. All questions have been answered and understanding verbalized. The following instructions and handouts were given: Diet, activity, medication list and follow up instructions provided to patient. Edwin care also verbalized with patient. Discontinued lines and drains: Peripheral IV discontinued and catheter intact. Patient discharged to Home or Self Care with Family Member via [facility]
--- NOTE | 2018-12-29 12:18 | DS ---
DATE OF DISCHARGE: 12/27/2018 ADMISSION DIAGNOSIS: Perirectal abscess. DISCHARGE DIAGNOSIS: Postoperative incision and drainage of perirectal abscess. HOSPITAL COURSE: The patient is a pleasant middle-aged male, who presented with a perirectal abscess. We admitted the patient, gave him IV antibiotics, consulted General Surgery. He was taken for incision and drainage. Postop day #2, he was doing well. We discharged home on p.o. Augmentin. DISPOSITION: Home. ACTIVITY: As tolerated. DIET: Low sodium. MEDICATIONS: Please see the MRAD. TOTAL TIME: 31 minutes. KOMALL Mae BANKS DO DR: JG/juan josé JOB#: [id number] / [id number]
== END 2018-12-27 15:30 | disposition home or self-care (01) | DRG 854 ==
LOC: ER 04:18 → 4 NORTH 07:44
PROVIDERS: ADMIT Internal Medicine; ATTEND Internal Medicine
PROC: 0D9P00Z Drainage of Rectum with Drainage Device, Open Approach (ICD-10-PCS; principal; 2018-12-24 10:45)
DX: A41.9 Sepsis, unspecified organism (principal); K61.1 Rectal abscess; K62.89 Other specified diseases of anus and rectum; R74.0 Nonspecific elevation of levels of transaminase and lactic acid dehydrogenase [LDH]
CPT/HCPCS: 36415; 74177; 80048; 80053; 80307; 81001; 85007; 85025; 85027; 87071; 87075; 90471; 90686; 94640; 96374; 96375; 96376; A7015; J1100; J1650; J1885; J2001; J2250; J2270; J2405; J2543; J2704; J3010; J3490; J7030; J7620; Q9967; 99285-25; A4461; G0378